=== PATIENT | female | born 1985 | race Two or more races ===

== ENCOUNTER 2020-12-28 20:44 | Emergency (ER) | payer OTHER, SELFPAY ==
[2020-12-28 20:46] VITALS: BP 106/56; PULSE 99; RESP 16; TEMP 36.3; O2SAT 97; BMI 31.1
--- NOTE | 2020-12-28 21:55 | ED_ITS ---
HPI - Ear Problem General Chief complaint: Ear Problems Stated complaint: Ear Pain Source: patient Mode of arrival: ambulatory Limitations: no limitations History of Present Illness HPI Narrative: Patient presents to the ED for right ear pain and yellow drainage from right ear. Patient has history of recurring infections. Patient also has small abscess on the right axillary. Patient denies any recent trauma to the head, nausea, vomiting, fever, chills, headache, dizziness, or swelling in front or behind here. Related Data Previous Rx's Medication Instructions Recorded amoxicillin-pot clavulanate 1 tab PO Q12H 10 Days #20 tab 12/28/20 [Augmentin] naproxen 500 mg PO BID PRN #20 tab 12/28/20 [id number] 4 drp OTIC (EAR) RIGHT QID 10 Days 12/28/20 [Cortisporin-TC] #10 ml Allergies Allergy/AdvReac Type Severity Reaction Status Date / Time No Known Allergies Allergy Verified 12/28/20 20:51 Review of Systems Review of Systems: Yes all other systems are reviewed and are negative Constitutional: Constitutional: Reports as per HPI and Reports no additional constitutional complaints Eyes: Eyes: Reports as per HPI and Reports no additional eye complaints ENT: Reports system reviewed and no additional complaints, except as documented, Reports as per HPI, Reports ear discharge and Reports otalgia Cardiovascular: Cardiovascular: Reports as per HPI and Reports no additional cardiovascular complaints Respiratory: Respiratory: Reports as per HPI and Reports no additional respiratory complaints Gastrointestinal: Gastrointestinal: Reports as per HPI and Reports no additional gastrointestinal complaints Genitourinary: Genitourinary: Reports no additional female genitourinary complaints and Reports as per HPI Musculoskeletal: Musculoskeletal: Reports no additional musculoskeletal complaints and Reports as per HPI Neurologic: Reports system reviewed and no additional complaints, except as documented and Reports as per HPI Psychiatric: Psychiatric: Reports no additional psychiatric complaints and Reports as per HPI [facility] Past Medical History Medical History (Updated 12/29/20 @ 00:01 by Leticia Bowers) Asthma Ear infection Social History Social History Advance Directives: No Advance Directives Information Provided: No Patient : No Physical Exam 2 Vital Signs: Vital Signs: Last Vital Signs Temp 97.4 F 12/28/20 20:46 Pulse 99 12/28/20 20:46 Resp 16 12/28/20 20:46 BP 106/56 L 12/28/20 20:46 Pulse Ox 97 12/28/20 20:46 Body Mass Index 31.1 Const: General: cooperative, healthy appearing, comfortable, no acute distress, well developed, alert, awake and Physically active Orientation/consciousness: patient oriented x3 HENMT: Other: Right ear positive for ear canal swelling with slight yellow discharge collection. Tympanic membrane erythema Head: Yes normal to inspection, Yes No palpable skull fracture present, Yes normocephalic, Yes atraumatic and No abrasion Eyes: General: appearance normal, both eyes and all related structures Neck: Neck: Yes normal visual inspection, Yes full ROM, Yes no lymphadenopathy, Yes no meningeal signs, Yes trachea midline, Yes supple and No tender Chest: Chest palpation & inspection: normal inspection of the chest and normal palpation of entire chest wall Resp: Effort & Inspection: normal respiratory effort and able to speak in complete sentences Auscultation: clear to auscultation bilaterally Cardio: Jugular venous distension: no JVD Heart sounds: S1 normal heart sound present and S2 normal heart sound present GI: Inspection: Yes normal to inspection and No abdominal wall ecchymosis Palpation (GI): Soft to palpation, not firm, nontender, no guarding and not rigid Skin: Other: Right axillary positive for abscess that is not fluctuant. Neuro: General: patient oriented x3, gait normal, no meningeal signs and CN's II-XI intact bilaterally Cranial nerves: Yes CN's II-XII intact bilaterally Extrem: General: Yes normal to inspection and Yes full ROM Psych: Appearance: grossly normal, well kempt and not disheveled Course Course Course Narrative: Abscess does not need to be drained. Reevaluation(s) Reevaluation #1: Diagnosis infection early abscess and otitis media/externa MDM - Ear MDM Narrative Medical decision making narrative: Otitis externa. Discharge Plan Discharge Clinical Impression: Otitis externa, Otitis media, Abscess Patient Disposition: Home, Self-Care Instructions: Ear Infection (ED), Abscess (ED) Additional Instructions: Return to the ED for worsening ear pain, redness/swelling in front of behind ear, worsening ear pain, worsening ear discharge, headache, neck pain, dizziness, worsening swelling of mass on the right arm., drainage, or any other concerning symptoms. Prescriptions: New amoxicillin-pot clavulanate [Augmentin] 875-125 mg tablet 1 tab PO Q12H 10 Days Qty: 20 RF: 0 naproxen 500 mg tablet 500 mg PO BID PRN (Reason: pain) Qty: 20 RF: 0 Cortisporin-TC 3.3-3-10-0.5 mg/mL drops,suspension 4 drp otic (ear) right QID 10 Days Qty: 10 RF: 0 Referrals: Live Blair [Physician] - 2 days (Chronic ear infections) Interventions: ED Discharge Assessment Last Done: 12/28/20 22:11 Discharge Date/Time: 12/28/20 22:19 Print Language: Syriac
== END 2020-12-28 22:19 | disposition home or self-care (01) ==
PROVIDERS: Emergency Provider Internal Medicine
DX: H60.91 Unspecified otitis externa, right ear (principal); H66.91 Otitis media, unspecified, right ear; H92.01 Otalgia, right ear; H60.01 Abscess of right external ear; Z79.899 Other long term (current) drug therapy
CPT/HCPCS: 99284

== ENCOUNTER 2021-02-15 18:09 | Emergency (ER) | payer OTHER, SELFPAY ==
[2021-02-15 18:18] VITALS: BP 116/40; PULSE 80; RESP 18; TEMP 36.1; O2SAT 97; BMI 29.2
--- NOTE | 2021-02-15 19:17 | PC.NURSE ---
WARM COMPRESS APPLIED UNDER LEFT UNDER ARM.
--- NOTE | 2021-02-15 19:30 | ED.GENADULT ---
HPI - General Adult General Chief complaint: Wound/Laceration Stated complaint: cyst, toe injury Time Seen by Provider: 02/15/21 19:18 Related Data Previous Rx's Medication Instructions Recorded amoxicillin 875 mg-potassium 1 tab PO Q12H 10 Days #20 tab 12/28/20 clavulanate 125 mg tablet (Augmentin) naproxen 500 mg tablet 500 mg PO BID PRN #20 tab 12/28/20 [id number]-dubirq-BE-thonzonm 3.3 4 drp OTIC (EAR) RIGHT QID 10 Days 12/28/20 mg-3 mg-10 mg-0.5 mg/mL ear #10 ml drops,susp (Cortisporin-TC) cephalexin 500 mg capsule 500 mg PO QID 5 Days #20 cap 02/15/21 Allergies Allergy/AdvReac Type Severity Reaction Status Date / Time No Known Allergies Allergy Verified 12/28/20 20:51 Review of Systems Review of Systems: Skin : No Skin Lesions, No rash, a right armpit swelling, right great toe pain Yes all other systems are reviewed and are negative Constitutional: Constitutional: Denies weight gain and Denies weight loss Cardiovascular: Cardiovascular: Reports no additional cardiovascular complaints Respiratory: Respiratory: Reports no additional respiratory complaints Gastrointestinal: Gastrointestinal: Denies abdominal pain, Denies belching, Denies melena, Denies bloating, Denies change in bowel habits, Denies dyspepsia, Denies heartburn, Denies nausea and Denies vomiting Neurologic: Reports system reviewed and no additional complaints, except as documented Psychiatric: Psychiatric: Reports no additional psychiatric complaints [facility] Past Medical History Medical History (Updated 02/16/21 @ 00:01 by Leticia Bowers) Asthma Ear infection Surgical History (Updated 02/15/21 @ 18:23 by Bessie Ann) History of ankle surgery Tubal ligation status Social History Social History Advance Directives: No Advance Directives Information Provided: No Patient : No (hx tubal ligation) Physical Exam Vital Signs: Vital Signs: Last Vital Signs Temp 96.9 F 02/15/21 18:18 Pulse 80 02/15/21 18:18 Resp 18 02/15/21 18:18 BP 116/40 L 02/15/21 18:18 Pulse Ox 97 02/15/21 18:18 Body Mass Index 29.2 Const: General: healthy appearing, no acute distress and well developed Nutritional Appearance: well nourished Orientation/consciousness: patient oriented x3 Neck: Neck: Yes normal visual inspection, Yes full ROM and Yes trachea midline Thyroid: Thyroid normal Resp: Auscultation: clear to auscultation bilaterally Cardio: Rate: regular rate Rhythm: regular rhythm GI: Inspection: Yes normal to inspection and No distended Palpation (GI): No hepatosplenomegaly present Auscultation: normal bowel sounds Skin: General skin exam: elasticity normal, turgor normal, dry skin and fluctuance (Right armpit) Nails: other (Right great toenail partial avulsion) Neuro: General: patient oriented x3 Course Course Course Narrative: 35-year-old female here today after hitting her right great toe, presents with partial avulsion of great toe toenail. She also reports that she has had cyst under her right armpit for the last few days. Not on any antibiotics. Area is fluctuated with white center. No fever or chills. Reevaluation(s) Reevaluation #1: Right great toenail removal used digital block. Patient tolerated. Right are paid abscess drained, packing placed patient was instructed to remove it in 4 days. However patient was instructed to return if she will increasing pain, swelling, redness, foul smell draining. She will be going on antibiotics for the next 5 days. Patient verbalizes understanding of instructions and is agreeable to plan of care. Procedures Procedure Narrative Procedure Narrative: Right great toe partial avulsion nail removal. Digital block with lidocaine 2%. Patient tolerated procedure well, whole nail removed, nail bed dressed with bacitracin and dry sterile dressing Abscess I/D Site: other (Right armpit) Side (if applicable): right Sedation/analgesia: other (Oxycodone, ) Local Anesthetic: lidocaine 2% Technique: incised with blade Amount of fluid expressed (mL): 3 Sent for culture/gram staining?: No Irrigation: Yes Packing used?: iodoform Nerve Block Nerve Block 1: Local Anesthetic: lidocaine 2% Amount of anesthesia used (mL): 10 Nerve Blocks: digital (Right great toe) Procedure Successful: Yes Patient Tolerated Procedure: well and no complications Discharge Plan Discharge Clinical Impression: Abscess, Nail avulsion, toe Patient Disposition: Home, Self-Care Instructions: Abscess Follow-up (ED), Nail Removal (ED) Additional Instructions: You were seen here today for abscess that was drained. Please keep the packing in for 4 days. You may remove it yourself. However if he will notice any foul-smelling order redness or have fever please return to emergency department or to your primary care provider. Left great toe toenail was removed. Please keep clean and dry. You may apply bacitracin. You will be sent home with antibiotics for 5 days. You may return to emergency department if he will develop any concerning symptoms. Prescriptions: New cephalexin 500 mg capsule 500 mg PO QID 5 Days Qty: 20 RF: 0 No Action amoxicillin-pot clavulanate [Augmentin] 875-125 mg tablet 1 tab PO Q12H 10 Days Qty: 20 RF: 0 naproxen 500 mg tablet 500 mg PO BID PRN (Reason: pain) Qty: 20 RF: 0 Cortisporin-TC 3.3-3-10-0.5 mg/mL drops,suspension 4 drp otic (ear) right QID 10 Days Qty: 10 RF: 0 Stand Alone Forms: Work/School Release Interventions: ED Discharge Assessment Last Done: 02/15/21 21:04 Discharge Date/Time: 02/15/21 21:07
[2021-02-15] MEDS: oxyCODONE HCl Immed Release 5 MG TABLET PO (19:42)
[2021-02-15] MEDS: Lidocaine HCl 2 % MPF 5 ML VIAL INFILTRATI ×4 (19:42)
[2021-02-15] MEDS: cephALEXin 500 MG CAPSULE PO (21:02)
--- NOTE | 2021-02-15 21:03 | PC.NURSE ---
PT LEFT TOE NAIOL REMOVED BY HAKAN SUN. PT RIGHT UNDER ARM ABSCESS CLEANED AND DRAINED PACKING APPLIED WITH DSD.
== END 2021-02-15 21:07 | disposition home or self-care (01) ==
PROVIDERS: Emergency Provider Emergency Medicine
DX: S91.201A Unspecified open wound of right great toe with damage to nail, initial encounter (principal); M79.674 Pain in right toe(s); X58.XXXA Exposure to other specified factors, initial encounter; Y93.9 Activity, unspecified; Y92.9 Unspecified place or not applicable; Y99.9 Unspecified external cause status; Z79.899 Other long term (current) drug therapy
CPT/HCPCS: 99284

== ENCOUNTER 2022-06-10 16:26 | Emergency (ER) | payer OTHER, SELFPAY | END 2022-06-10 17:41 | disposition left against medical advice (07) | PROVIDERS: Emergency Provider Emergency Medicine | DX: H92.03 Otalgia, bilateral (principal) ==

== ENCOUNTER 2022-10-05 11:18 | Emergency (ER) | payer OTHER, SELFPAY ==
[2022-10-05 12:03] VITALS: BP 111/68; PULSE 73; RESP 16; TEMP 36.2; O2SAT 99; BMI 29.6
--- NOTE | 2022-10-05 12:05 | ED_ITS ---
HPI - Dental/Oral General Chief complaint: Dental/Oral <Rhianna Thompson CNP - Last Filed: 10/05/22 12:10> Stated complaint: toothache <Rhianna Thompson CNP - Last Filed: 10/05/22 12:10> Time Seen by Provider: 10/05/22 12:43 <Rhianna Thmopson CNP - Last Filed: 10/05/22 12:10> Source: patient <MANJIT Alvarez - Last Filed: 10/05/22 18:11> Mode of arrival: ambulatory <MANJIT Alvarez Last Filed: 10/05/22 18:11> Limitations: no limitations <MANJIT Alvarez Last Filed: 10/05/22 18:11> History of Present Illness HPI Narrative: Patient is a 36 year old assigned female at with no reported medical history presenting to the emergency department today with dental pain. Patient states that over the last 3 days she has had left sided dental pain. Patient denies any dizziness, lightheadedness, abdominal pain, nausea, vomiting, fever, chills, blurry vision, double vision, loss of vision, chest pain, difficulty breathing, shortness of breath, back pain, night sweats, pain with urination, increased urinary frequency, increased urinary urgency, blood in her urine or stool, syncope or a near syncopal episode, recent trauma or falls, bowel incontinence, bladder incontinence, bowel retention, bladder retention, or any other complaints at this time. Patient states that she attempted to get into the dentist but they didn't have any availability. <MANJIT Alvarez - Last Filed: 10/05/22 18:11> MD Complaint: tooth pain <MANJIT Alvarez - Last Filed: 10/05/22 18:11> Location: Tooth # (13) <MANJIT Alvarez Last Filed: 10/05/22 18:11> Onset (ago): day(s) (3) <MANJIT Alvarez Last Filed: 10/05/22 18:11> Duration: constant <MANJIT Alvarez Last Filed: 10/05/22 18:11> Severity: moderate <MANJIT Alvarez Last Filed: 10/05/22 18:11> Severity scale (1-10): 5 <MANJIT Alvarez - Last Filed: 10/05/22 18:11> Relieving factors: nothing <MANJIT Alvarez - Last Filed: 10/05/22 18:11> Exacerbating factors: nothing <MANJIT Alvarez - Last Filed: 10/05/22 18:11> Context: history of dental caries and poor dental care <MANJIT Alvarez - Last Filed: 10/05/22 18:11> Associated symptoms: gum swelling <MANJIT Alvarez - Last Filed: 10/05/22 18:11> Treatment prior to arrival: none <MANJIT Alvarez - Last Filed: 10/05/22 18:11> Related Data Home medications: Previous Rx's Medication Instructions Recorded amoxicillin 875 mg-potassium 1 tab PO Q12H ear infections 10 12/28/20 clavulanate 125 mg tablet days #20 tabs (Augmentin) naproxen 500 mg tablet 500 mg PO BID PRN pain #20 tabs 12/28/20 [id number] 3.3 4 drp otic (ear) right QID otitis 12/28/20 mg-3 mg-10 mg-0.5 mg/mL ear externa 10 days #10 mL drops,susp (Cortisporin-TC) cephalexin 500 mg capsule 500 mg PO QID 5 days #20 caps 02/15/21 chlorhexidine gluconate 0.12 % 15 ml buccal BID #118 mL 10/05/22 mouthwash (Peridex) oxycodone 5 mg tablet 5 mg PO Q4-6H PRN pain #4 tabs 10/05/22 penicillin V potassium 500 mg 500 mg PO QID 7 days #28 tabs 10/05/22 tablet <Rhianna Thompson CNP - Last Filed: 10/05/22 12:10> Allergies/adverse reactions: Allergies Allergy/AdvReac Type Severity Reaction Status Date / Time No Known Allergies Allergy Mild NONE Verified 10/05/22 17:02 <Rhianna Thompson CNP - Last Filed: 10/05/22 12:10> Review of Systems Constitutional: Constitutional: Reports no additional constitutional complaints, Denies chills, Denies fever(s) and Denies night sweats <MANJIT Alvarez - Last Filed: 10/05/22 18:11> Eyes: Eyes: Reports no additional eye complaints, Denies blurry vision, Denies change in vision, Denies diplopia, Denies eye discharge, Denies loss of vision and Denies eye pain <MANJIT Alvarez - Last Filed: 10/05/22 18:11> ENT: Denies dizziness <MANJIT Alvarez - Last Filed: 10/05/22 18:11> Comments: left sided dental pain <MANJIT Alvarez - Last Filed: 10/05/22 18:11> Cardiovascular: Cardiovascular: Reports no additional cardiovascular complaints, Denies chest pain, Denies lightheadedness, Denies Loss of Consciousness and Denies dyspnea <MANJIT Alvarez - Last Filed: 10/05/22 18:11> Respiratory: Respiratory: Reports no additional respiratory complaints and Denies dyspnea <MANJIT Alvarez - Last Filed: 10/05/22 18:11> Gastrointestinal: Gastrointestinal: Reports no additional gastrointestinal complaints, Denies abdominal pain, Denies melena, Denies hematochezia, Denies change in bowel habits and Denies change in stool character <MANJIT Alvarez - Last Filed: 10/05/22 18:11> Genitourinary: Genitourinary: Denies hematuria, Denies urinary frequency, Denies dysuria, Denies urinary incontinence, Denies urinary hesitancy and Denies urinary urgency <MANJIT Alvarez - Last Filed: 10/05/22 18:11> Musculoskeletal: Musculoskeletal: Reports no additional musculoskeletal complaints, Denies numbness and Denies tingling <MANJIT Alvarez - Last Filed: 10/05/22 18:11> Neurologic: Denies dizziness, Denies loss of vision, Denies numbness and Denies tingling <MANJIT Alvarez - Last Filed: 10/05/22 18:11> Psychiatric: Psychiatric: Reports no additional psychiatric complaints <MANJIT Alvarez - Last Filed: 10/05/22 18:11> Endocrine: Endocrine: Reports no additional endocrine complaints <MANJIT Alvarez - Last Filed: 10/05/22 18:11> Hematologic/Lymphatic: Hematologic/Lymphatic: Reports no additional hematologic/lymphatic complaints <MANJIT Alvarez - Last Filed: 10/05/22 18:11> Allergic/Immunologic: Allergic/Immunologic: Reports no additional allergic/immunologic complaints <MANJIT Alvarez - Last Filed: 10/05/22 18:11> PMFSH Past Medical History Attestation statement: The following information was validated with the patient. <MANJIT Alvarez - Last Filed: 10/05/22 18:11> Source: old records reviewed and nursing notes reviewed <MANJIT Alvarez - Last Filed: 10/05/22 18:11> Medical History: Medical History Asthma Ear infection <Rhianna Thompson CNP - Last Filed: 10/05/22 12:10> Surgical History: Surgical History History of ankle surgery Tubal ligation status <Rhianna Thompson CNP - Last Filed: 10/05/22 12:10> Social History Social History: Social History Use of substances other than those prescribed or required for medical reasons: No Any prior treatment program specific to substance use: No Advance Directives: No Advance Directives Information Provided: Yes Patient : No <Rhianna Thompson CNP - Last Filed: 10/05/22 12:10> Physical Exam Vital Signs: Vital Signs: Last Vital Signs Temp 97.2 F 10/05/22 12:03 Pulse 73 10/05/22 12:03 Resp 16 10/05/22 12:03 BP 111/68 10/05/22 12:03 Pulse Ox 99 10/05/22 12:03 O2 Del Method 10/05/22 12:03 BMI result Body Mass Index 29.6 <Rhianna Thompson CNP - Last Filed: 10/05/22 12:10> Vital Signs: Last Vital Signs Temp 97.2 F 10/05/22 12:03 Pulse 73 10/05/22 12:03 Resp 16 10/05/22 12:03 BP 111/68 10/05/22 12:03 Pulse Ox 99 10/05/22 12:03 O2 Del Method 10/05/22 12:03 BMI result Body Mass Index 29.6 <MANJIT Alvarez - Last Filed: 10/05/22 18:11> Const: General: cooperative, no acute distress, alert and awake <MANJIT Alvarez - Last Filed: 10/05/22 18:11> Nutritional Appearance: well nourished <MANJIT Alvarez - Last Filed: 10/05/22 18:11> Orientation/consciousness: patient oriented x3 <MANJIT Alvarez - Last Filed: 10/05/22 18:11> Limitations: no limitations <MANJIT Alvarez - Last Filed: 10/05/22 18:11> HEENT: Head: Yes normal to inspection and Yes atraumatic <MANJIT Alvarez - Last Filed: 10/05/22 18:11> Ears: hearing grossly normal bilaterally and external ears normal <MANJIT Alvarez - Last Filed: 10/05/22 18:11> General nose exam: Normal external nose present, no nasal discharge noted and no epistaxis <MANJIT Alvarez - Last Filed: 10/05/22 18:11> Face and sinus: Yes normal facial exam, No abrasion and No laceration <MANJIT Chowdhury - Last Filed: 10/05/22 18:11> Mouth: Normal oral and palatal mucosa present, no drooling and no muffled voice <MANJIT Alvarez - Last Filed: 10/05/22 18:11> Teeth and gingiva: poor dentition and other (all teeth except tooth #13 are gone) <MANJIT Alvarez - Last Filed: 10/05/22 18:11> Teeth image: 1. swelling around the tooth and obvious dental caries present <Rhianna Thompson CNP - Last Filed: 10/05/22 12:10> Teeth image: 1. swelling around the tooth and obvious dental caries present <MANJIT Alvarez - Last Filed: 10/05/22 18:11> Eyes: General: appearance normal, both eyes and all related structures <MANJIT Alvarez - Last Filed: 10/05/22 18:11> Periorbital: periorbital findings normal <Celeste Andersen PA - Last Filed: 10/05/22 18:11> Eyelids: Yes eyelids normal <Celeste Andersen PA - Last Filed: 10/05/22 18:11> Conjunctivae: conjunctivae normal <Celeste Andersen PA - Last Filed: 10/25 18:11> Pupils: Equal, round and reactive pupils present <Celeste Andersen PA - Last Filed: 10/05/22 18:11> EOM: EOMs intact bilaterally <Celeste Andersen PA - Last Filed: 10/05/22 18:11> Neck: Neck: Yes normal visual inspection, Yes full ROM and Yes no lymphadenopathy <Celeste Sniderclarice PA - Last Filed: 10/05/22 18:11> Chest: Chest palpation & inspection: normal inspection of the chest <Celeste Sniderclarice PA - Last Filed: 10/05/22 18:11> Resp: Effort & Inspection: normal respiratory effort and able to speak in complete sentences <Celeste Sniderclarice PA - Last Filed: 10/05/22 18:11> Auscultation: clear to auscultation bilaterally <Celeste Sniderclarice PA - Last Filed: 10/05/22 18:11> Cardio: Rate: regular rate <Celeste Sniderclarice PA - Last Filed: 10/05/22 18:11> Rhythm: regular rhythm <Celeste Andersen PA - Last Filed: 10/05/22 18:11> GI: Inspection: Yes normal to inspection <Celeste Sniderclarice PA - Last Filed: 10/05/22 18:11> Palpation (GI): Soft to palpation, not firm, nontender, no guarding and not rigid <Celeste Sniderclarice PA - Last Filed: 10/05/22 18:11> Neuro: General: patient oriented x3 and moves all extremities <Celeste Sniderclarice PA - Last Filed: 10/05/22 18:11> Cranial nerves: Yes Equal, round and reactive pupils present <Celeste Sniderclarice PA - Last Filed: 10/05/22 18:11> Cognition (Neuro): normal cognition <Celestedean Sniderclarice PA - Last Filed: 10/05/22 18:11> Motor exam (neuro): 5/5 motor strength present throughout <MANJIT Alvarez - Last Filed: 10/05/22 18:11> Sensory Exam: Normal double simultaneous stimulation for sensation <MANJIT Alvarez - Last Filed: 10/05/22 18:11> Coordination: gpzquy-qv-lgle test normal <MANJIT Alvarez - Last Filed: 10/05/22 18:11> Extrem: General: Yes normal to inspection, Yes full ROM and Yes capillary refill normal <MANJIT Alvarez - Last Filed: 10/05/22 18:11> Psych: Appearance: grossly normal <MANJIT Alvarez - Last Filed: 0 10/05/22 18:11> Mental Status: mental status grossly normal <MANJIT Alvarez - Last Filed: 10/05/22 18:11> Affect: normal affect <MANJIT Alvarez - Last Filed: 10/05/22 18:11> Attitude: cooperative <MANJIT Alvarez - Last Filed: 10/05/22 18:11> Thought process: Normal thought process present <MANJIT Alvarez - Last Filed: 10/05/22 18:11> Thought content: Normal thought content present <MANJIT Alvarez - Last Filed: 10/05/22 18:11> Insight: Good insight present (Psych) <MANJIT Alvarez - Last Filed: 10/05/22 18:11> Course Course Course Narrative: This is an RME: Additional HPI, ROS, PE not included below will be deferred to primary provider. Patient is a 36-year-old female who presents to the emergency department with complaint of left upper dental pain, with swelling of the gums, foul taste in mouth, pain radiating to L ear x 3 days, was unable to get appointment with dental provider. Reports pain is unbearable. <Rhianna Thompson CNP - Last Filed: 10/05/22 12:10> Medications Administered Discontinued Medications Generic Name Dose Route Start Last Admin Trade Name Freq PRN Reason Stop Dose Admin Ibuprofen 600 mg 10/05/22 12:07 10/05/22 12:11 Ibuprofen 600 Mg Tablet PO 10/05/22 12:08 600 mg ONCE ONE Administration <Rhianna Thompson CNP - Last Filed: 10/05/22 12:10> Medications Administered Discontinued Medications Generic Name Dose Route Start Last Admin Trade Name Brianna LEONARD Reason Stop Dose Admin Ibuprofen 600 mg 10/05/22 12:07 10/05/22 12:11 Ibuprofen 600 Mg Tablet PO 10/05/22 12:08 600 mg ONCE ONE Administration <MANJIT Alvarez - Last Filed: 10/05/22 18:11> Medical Decision Making Medical Decision Making MDM Narrative: Patient is a 36 year old assigned female at with no reported medical history presenting to the emergency department today with left sided dental pain. Patient's physical exam showed poor dentition throughout her mouth with all teeth except #13 of the upper left row, removed. Base of tooth 13 showed swelling and an obvious dental ena. I explained my physical exam findings to the patient. I answered all questions asked by the patient. I stressed the importance of the patient taking her medication as prescribed. I stressed the importance of the patient following up with her primary care provider and a dentist. I stressed the importance of the patient returning to the emergency department immediately if her symptoms were to worsen or if she were to develop any dizziness, shortness of breath, difficulty breathing, chest pain, blurry vision, loss of vision, nausea, vomiting, abdominal pain, fever, chills, back pain, or any other complaints. Patient verbalized agreement and understanding with this treatment plan and discharge. <MANJIT Alvarez - Last Filed: 10/05/22 18:11> Differential Diagnosis Differential Diagnoses: The differential diagnosis associated with the presentation includes <MANJIT Alvarez - Last Filed: 10/05/22 18:11> dental abscess, dental pain <MANJIT Alvarez - Last Filed: 10/05/22 18:11> Discharge Plan Discharge Clinical Impression: Dental abscess <Rhianna Thompson CNP - Last Filed: 10/05/22 12:10> Patient Disposition: Home, Self-Care <Rhianna Thompson CNP - Last Filed: 10/05/22 12:10> Instructions: Dental Abscess (ED) <Rhianna Thompson CNP - Last Filed: 10/05/22 12:10> Additional Instructions: Follow up with your primary care provider and a dentist. Return to the emergency department immediately if your symptoms worsen or if you develop any dizziness, shortness of breath, difficulty breathing, chest pain, blurry vision, loss of vision, nausea, vomiting, abdominal pain, fever, chills, back pain, or any other complaints. Call or visit any of the clinics below to establish with a dentist: [facility] [address] [place] [address] [facility] [address] [facility], [address] [address] [place] [address] [facility] Dental [facility] 1 [facility] [address] [place] [address] [facility] [address] [place] [address] [address] [place] [address] <Rhianna Thompson CNP - Last Filed: 10/05/22 12:10> Prescriptions: New penicillin V potassium 500 mg tablet 500 mg PO QID 7 Days Qty: 28 0RF oxycodone 5 mg tablet 5 mg PO Q4-6H PRN (Reason: pain) Qty: 4 0RF Rx Instructions: Partial Fill upon patient request. chlorhexidine gluconate [Peridex] 0.12 % mouthwash 15 ml buccal BID Qty: 118 0RF No Action amoxicillin-pot clavulanate [Augmentin] 875-125 mg tablet 1 tab PO Q12H 10 Days Qty: 20 0RF naproxen 500 mg tablet 500 mg PO BID PRN (Reason: pain) Qty: 20 0RF Cortisporin-TC 3.3-3-10-0.5 mg/mL drops,suspension 4 drp otic (ear) right QID 10 Days Qty: 10 0RF cephalexin 500 mg capsule 500 mg PO QID 5 Days Qty: 20 0RF <Rhianna Thompson CNP - Last Filed: 10/05/22 12:10> Referrals: [facility] Family Medicine [Provider Group] (Call to establish and follow up with a primary care provider. If you already have a primary care provider, please follow up with them.) [facility] [Provider Group] (Call to establish and follow up with a primary care provider. If you already have a primary care provider, please follow up with them.) [facility] [Provider Group] (Call to establish and follow up with a primary care provider. If you already have a primary care provider, please follow up with them.) <Rhianna Thompson CNP - Last Filed: 10/05/22 12:10> Stand Alone Forms: Work/School Release <Rhianna Thompson CNP - Last Filed: 10/05/22 12:10> Interventions: ED Discharge Assessment Last Done: 10/05/22 13:03 <Rhianna Thompson CNP - Last Filed: 10/05/22 12:10> Discharge Date/Time: 10/05/22 13:03 <Rhianna Thompson CNP - Last Filed: 10/05/22 12:10> Print Language: Slovenian <Rhianna Thompson CNP - Last Filed: 10/05/22 12:10>
[2022-10-05] MEDS: Ibuprofen 600 MG TABLET PO (12:11)
== END 2022-10-05 13:03 | disposition home or self-care (01) ==
PROVIDERS: Emergency Provider Emergency Medicine Emergency Medical Services
DX: K04.7 Periapical abscess without sinus (principal); Z79.899 Other long term (current) drug therapy
CPT/HCPCS: 99283; 99284

== ENCOUNTER 2022-11-18 10:35 | Emergency (ER) | payer MEDICAID, SELFPAY ==
[2022-11-18 10:46] VITALS: BP 108/53; PULSE 82; RESP 18; TEMP 36.6; O2SAT 96; BMI 31.1
--- NOTE | 2022-11-18 11:13 | ED.DENTAL ---
HPI - Dental/Oral General Chief complaint: Dental/Oral Stated complaint: R side tooth pain/ 11/16 tooth extraction Time Seen by Provider: 11/18/22 11:10 Source: patient Mode of arrival: ambulatory History of Present Illness HPI Narrative: 37-year-old female with a past medical history of asthma, presenting to the ED complaining of a left upper dental pain s/p tooth extraction on Saturday. Reports increasing pain to area, and feels like tooth is still intact. Currently taking amoxicillin and Tylenol without relief. Denies fever/chills, ear pain, sore throat, difficulty/inability to swallow, drainage from area MD Complaint: tooth pain Related Data Previous Rx's Medication Instructions Recorded amoxicillin 875 mg-potassium 1 tab PO Q12H ear infections 10 12/28/20 clavulanate 125 mg tablet days #20 tabs (Augmentin) naproxen 500 mg tablet 500 mg PO BID PRN pain #20 tabs 12/28/20 [id number]-[id number] 3.3 4 drp otic (ear) right QID otitis 12/28/20 mg-3 mg-10 mg-0.5 mg/mL ear externa 10 days #10 mL drops,susp (Cortisporin-TC) cephalexin 500 mg capsule 500 mg PO QID 5 days #20 caps 02/15/21 chlorhexidine gluconate 0.12 % 15 ml buccal BID #118 mL 10/05/22 mouthwash (Peridex) oxycodone 5 mg tablet 5 mg PO Q4-6H PRN pain #4 tabs 10/05/22 penicillin V potassium 500 mg 500 mg PO QID 7 days #28 tabs 10/05/22 tablet hydrocodone 5 mg-acetaminophen 325 1 tab PO Q8H PRN pain, severe 3 11/18/22 mg tablet days #5 tabs ibuprofen 800 mg tablet 800 mg PO Q8H PRN pain #14 tabs 11/18/22 Allergies Allergy/AdvReac Type Severity Reaction Status Date / Time No Known Allergies Allergy Mild NONE Verified 11/18/22 10:49 Review of Systems Review of Systems: Constitutional: No Fever, No Chills ENT/Mouth: +dental pain, No Ear Pain, No Nasal Congestion, No Sinus Pain, No Hoarseness, No sore throat, No Rhinorrhea, No Swallowing Difficulty Cardiovascular: No Chest Pain, No SOB Respiratory: No Cough, No Sputum, No Wheezing Gastrointestinal: No Nausea, No Vomiting, No Diarrhea, No Constipation, No Abdominal pain Musculoskeletal: No joint pain, No Myalgias, No Joint Swelling Skin: No Skin Lesions, No rash Neuro: No Weakness, No Numbness, No Paresthesias Yes all other systems are reviewed and are negative Constitutional: Constitutional: Reports as per [facility] Past Medical History Attestation statement: The following information was validated with the patient. Medical History Asthma Ear infection Surgical History History of ankle surgery Tubal ligation status Social History Social History Advance Directives: No Advance Directives Information Provided: No Physical Exam Vital Signs: Vital Signs: Last Vital Signs Temp 97.9 F 11/18/22 10:46 Pulse 82 11/18/22 10:46 Resp 18 11/18/22 10:46 BP 108/53 L 11/18/22 10:46 Pulse Ox 96 11/18/22 10:46 O2 Del Method Room Air 11/18/22 10:46 BMI result Body Mass Index 31.1 Const: General: cooperative, healthy appearing and no acute distress Orientation/consciousness: patient oriented x3 Limitations: no limitations HEENT: Other: Left upper 2nd molar extracted, mild surrounding gingival inflammation, no erythema, fluctuance or induration, no active drainage. + tender to palpation Head: Yes normal to inspection and Yes atraumatic Ears: hearing grossly normal bilaterally, TM's normal bilaterally and mastoids normal General nose exam: Normal external nose present Face and sinus: Yes normal facial exam Teeth and gingiva: poor dentition Throat: Yes posterior oropharynx normal and Yes uvula midline Eyes: General: appearance normal, both eyes and all related structures EOM: EOMs intact bilaterally Neck: Neck: Yes normal visual inspection, Yes no lymphadenopathy, Yes no meningeal signs and No anterior neck swelling Resp: Effort & Inspection: normal respiratory effort, no respiratory distress and no stridor Cardio: Rate: regular rate Skin: Rashes: no rashes Wounds: no wounds Neuro: General: patient oriented x3, tone normal and no meningeal signs Gait exam (Neuro): Normal gait present Extrem: General: Yes normal to inspection Medical Decision Making Medical Decision Making MDM Narrative: 37-year-old female with a past medical history of asthma, presenting to the ED complaining of a left upper dental pain s/p tooth extraction on Saturday. On exam vital signs stable, NAD, nontoxic, physical exam as above. Extracted tooth site noted, no appreciable residual tooth at site. + gingival inflammation, no erythema/fractions or induration. Concern for residual dental pain after extraction vs dry socket. No evidence of necrosis or abscess Plan: Dry socket paste, pain management, close dentistry follow-up >> no dry socket paste in dental box, patient given topical benzocaine Please refer to course for remaining clinical decision making, interpretation of labs/imaging results, and discussions with consultants and/or family members. Differential Diagnosis Differential Diagnoses: The differential diagnosis associated with the presentation includes As above Admission/Observation Consideration of admission/observation: Escalation of care including admission/observation considered Lab Data [facility] Lab Attestation statement: I reviewed the patient's lab results. Radiology Impression Discussion of test interpretation with radiology: I have reviewed the radiologist's reading. External Record Review External record reviewed: Inpatient record, Office record, Outpatient record, Prior outpatient labs, Prior outpatient radiology, Primary care record and Outside ED record Discharge Plan Discharge Clinical Impression: Toothache Patient Disposition: Home, Self-Care Instructions: Toothache (ED) Additional Instructions: Continue taking previously prescribed antibiotics In addition ibuprofen will help with pain and inflammation [place] is in opiate pain medication, take only when pain is severe for the next [address], drink alcohol, or operate machinery while taking Call your dentist for close follow-up on Saturday when the office opens If symptoms persist or worsen return to the ED Prescriptions: New ibuprofen 800 mg tablet 800 mg PO Q8H PRN (Reason: pain) Qty: 14 0RF hydrocodone-acetaminophen 5-325 mg tablet 1 tab PO Q8H PRN (Reason: pain, severe) 3 Days Qty: 5 0RF Rx Instructions: Partial Fill upon patient request. No Action amoxicillin-pot clavulanate [Augmentin] 875-125 mg tablet 1 tab PO Q12H 10 Days Qty: 20 0RF naproxen 500 mg tablet 500 mg PO BID PRN (Reason: pain) Qty: 20 0RF Cortisporin-TC 3.3-3-10-0.5 mg/mL drops,suspension 4 drp otic (ear) right QID 10 Days Qty: 10 0RF cephalexin 500 mg capsule 500 mg PO QID 5 Days Qty: 20 0RF penicillin V potassium 500 mg tablet 500 mg PO QID 7 Days Qty: 28 0RF oxycodone 5 mg tablet 5 mg PO Q4-6H PRN (Reason: pain) Qty: 4 0RF Rx Instructions: Partial Fill upon patient request. chlorhexidine gluconate [Peridex] 0.12 % mouthwash 15 ml buccal BID Qty: 118 0RF Referrals: Physician,Unknown J [Primary Care Provider] -
== END 2022-11-18 11:47 | disposition home or self-care (01) ==
PROVIDERS: Emergency Provider Emergency Medicine
DX: K08.89 Other specified disorders of teeth and supporting structures (principal)
CPT/HCPCS: 99282

== ENCOUNTER 2023-04-19 09:56 | Emergency (ER) | payer MEDICAID, SELFPAY ==
--- NOTE | ~2023-04-19 | XR_ITS ---
EXAMINATION: XR KNEE, LEFT CLINICAL INFORMATION: Left knee pain following injury. COMPARISON: None available. TECHNIQUE: Four views of the left knee. FINDINGS: No acute fracture or dislocation. No joint space narrowing or marginal osteophytes. No osseous erosion. No abnormal soft tissue calcification. Trace joint effusion. XR/XR knee LT 4V IMPRESSION: Trace joint effusion.
[2023-04-19 10:08] VITALS: BP 113/52; PULSE 83; RESP 17; TEMP 36.4; O2SAT 98; BMI 30.6
--- NOTE | 2023-04-19 12:25 | ED_ITS ---
HPI - General Adult General Chief complaint: Extremity Injury, Lower Stated complaint: sprained knee cap Time Seen by Provider: 04/19/23 11:42 Source: patient Mode of arrival: ambulatory Limitations: no limitations History of Present Illness HPI narrative: 37-year-old female presents to the knee pain since early this morning. Patient states last night she tripped and when she fell she fell strainght down unto the floor with her left leg stretched out in front of her and felt pain immeidatley in anterior and posterior knee. Patient denies rest of body including head hitting the floor. patient states posterior knee pain when straightened out leg or extending knee. Related Data Previous Rx's Medication Instructions Recorded amoxicillin 875 mg-potassium 1 tab PO Q12H ear infections 10 12/28/20 clavulanate 125 mg tablet days #20 tabs (Augmentin) naproxen 500 mg tablet 500 mg PO BID PRN pain #20 tabs 12/28/20 [id number] 3.3 4 drp otic (ear) right QID otitis 12/28/20 mg-3 mg-10 mg-0.5 mg/mL ear externa 10 days #10 mL drops,susp (Cortisporin-TC) cephalexin 500 mg capsule 500 mg PO QID 5 days #20 caps 02/15/21 chlorhexidine gluconate 0.12 % 15 ml buccal BID #118 mL 10/05/22 mouthwash (Peridex) oxycodone 5 mg tablet 5 mg PO Q4-6H PRN pain #4 tabs 10/05/22 penicillin V potassium 500 mg 500 mg PO QID 7 days #28 tabs 10/05/22 tablet hydrocodone 5 mg-acetaminophen 325 1 tab PO Q8H PRN pain, severe 3 11/18/22 mg tablet days #5 tabs ibuprofen 800 mg tablet 800 mg PO Q8H PRN pain #14 tabs 11/18/22 naproxen 500 mg tablet 500 mg PO BID PRN pain 7 days #14 04/19/23 tabs oxycodone 5 mg capsule 5 mg PO TID PRN pain 3 days #9 caps 04/19/23 prednisone 20 mg tablet 40 mg (2 x 20 mg) PO DAILY 5 days 04/19/23 #10 tabs Allergies Allergy/AdvReac Type Severity Reaction Status Date / Time No Known Allergies Allergy Mild NONE Verified 11/18/22 10:49 Review of Systems 2 Review of Systems: LEft knee pain Yes all other systems are reviewed and are negative [facility] Past Medical History Medical History Asthma Ear infection Surgical History History of ankle surgery Tubal ligation status Social History Social History Advance Directives: No Physical Exam ED Vital Signs: Vital Signs - 24 hr 04/19/23 10:08 Temperature 97.6 F Pulse Rate 83 Respiratory Rate 17 Blood Pressure 113/52 L Pulse Oximetry 98 Oxygen Delivery Method Room Air BMI result Body Mass Index 30.6 Const Orientation/consciousness: oriented to person, oriented to place, oriented to time and patient oriented x3 HENMT Head: Yes normal to inspection, Yes No palpable skull fracture present, Yes normocephalic and Yes atraumatic Eyes General: appearance normal, both eyes and all related structures Neck Neck: Yes normal visual inspection, Yes full ROM, Yes no lymphadenopathy, Yes no meningeal signs, Yes trachea midline, Yes supple, No anterior neck swelling and No tender Chest Chest palpation & inspection: normal inspection of the chest and normal palpation of entire chest wall Resp Effort & Inspection: normal respiratory effort and able to speak in complete sentences Auscultation: clear to auscultation bilaterally Cardio Jugular venous distension: no JVD Heart sounds: S1 normal heart sound present and S2 normal heart sound present GI Inspection: Yes normal to inspection Palpation (GI): Soft to palpation, not firm, nontender, no guarding and not rigid General: No CVA tenderness and Yes no CVA tenderness Back/Spine/Pelvis Back: no CVA tenderness, No CVA tenderness and No back tenderness Skin General skin exam: no rashes or lesions noted, elasticity normal and turgor normal Neuro General: oriented to person, oriented to place, oriented to time, patient oriented x3, gait normal, tone normal, moves all extremities, Normal light touch and pain sensation, no meningeal signs, no focal motor deficits, CN's II-XI intact bilaterally and normal sensation to monofilament Extrem General: Yes normal to inspection Knee images: 2 1. tenderness on palpation. Negative for crepitus, ecchymosis, or deformity. When extending leg / straighten out knee patient is significant pain. Popliteal pulses intact. Neuro exam intact. Vascular exam of lower extremity intact. Motor exam limited due to pain. rest of extremity normal. 2. Tenderness on palpation. Negative for crepitus, ecchymosis, or deformity. Vascular neuro exam intact. Negative for erythema, ecchymosis, hotness, or coolness. Motor exam limited due to pain. Psych Appearance: grossly normal, well kempt and not disheveled Medications Administered Discontinued Medications Generic Name Dose Route Start Last Admin Trade Name Servandoq PRN Reason Stop Dose Admin Acetaminophen 650 mg 04/19/23 12:23 04/19/23 12:45 Acetaminophen 325 Mg Tablet PO 04/19/23 12:24 650 mg ONCE ONE Administration Oxycodone HCl 5 mg 04/19/23 12:23 04/19/23 12:45 Oxycodone Hcl Immed Release 5 Mg Tablet PO 04/19/23 12:24 5 mg ONCE ONE Administration Prednisone 40 mg 04/19/23 12:23 04/19/23 12:45 Prednisone 20 Mg Tablet PO 04/19/23 12:24 40 mg ONCE ONE Administration Medical Decision Making Medical Decision Making MDM Narrative: 37-year-old female presents to the ED for left knee pain after falling straight down onto left leg and knee strain out. Patient denies any head trauma or trauma to the rest of the body. Patient states when extending or strain on left leg she has pain in posterior knee area. X-ray of knee negative for fractures or dislocation but does show trace joint effusion. patient was informed this may indicate some ligament or meniscus injury to left knee. Patient was informed also due to her having left posterior knee lower thigh tenderness she might be at risk for hamstring injury. Patient informed to follow up with PCP to assess for MRI. Patient placed in knee Harmeet wrap and crutches. Differential Diagnosis Differential Diagnoses: The differential diagnosis associated with the presentation includes ( Knee dislocation, knee fracture, patella tendon rupture, hamstring injury, ) Admission/Observation Consideration of admission/observation: Escalation of care including admission/observation considered Independent Interpretation I performed an independent interpretation of an: Plain X-Ray Radiology Impression Discussion of test interpretation with radiology: I have reviewed the radiologist's reading. Independent Historian Clinical information obtained from an independent historian. History obtained from or confirmed by: Spouse External Record Review External record reviewed: Other (Prior ED visit) Prescription Management I considered prescription management with: Pain Medication Discharge Plan Discharge Clinical Impression: Knee sprain, Hamstring muscle strain Patient Disposition: Home, Self-Care Instructions: Knee Sprain (ED), Crutch Instructions (ED), Hamstring Injury (ED), How to Use an Elastic Bandage (ED), R.I.C.E. Treatment (ED), Hamstring Exercises (ED) Additional Instructions: the x-ray came back negative for any fractures but does shows trace joint infusion knee knee. this may indicate meniscus or ligament injury in your knee and also with posterior knee pain might indicate hamstring injury. Most likely you need MRI. Please follow-up with your primary care provider. Return to the ED immediately for any swelling, bluish black discoloration, worsening pain, inability to move left lower extremity, fever, chills, chest pain, shortness of breath, or any other concerning symptoms. Prescriptions: New naproxen 500 mg tablet 500 mg PO BID PRN (Reason: pain) 7 Days Qty: 14 0RF prednisone 20 mg tablet 40 mg PO DAILY 5 Days Qty: 10 0RF oxycodone 5 mg capsule 5 mg PO TID PRN (Reason: pain) 3 Days Qty: 9 0RF Rx Instructions: Partial Fill upon patient request. No Action amoxicillin-pot clavulanate [Augmentin] 875-125 mg tablet 1 tab PO Q12H 10 Days Qty: 20 0RF naproxen 500 mg tablet 500 mg PO BID PRN (Reason: pain) Qty: 20 0RF Cortisporin-TC 3.3-3-10-0.5 mg/mL drops,suspension 4 drp otic (ear) right QID 10 Days Qty: 10 0RF cephalexin 500 mg capsule 500 mg PO QID 5 Days Qty: 20 0RF penicillin V potassium 500 mg tablet 500 mg PO QID 7 Days Qty: 28 0RF oxycodone 5 mg tablet 5 mg PO Q4-6H PRN (Reason: pain) Qty: 4 0RF Rx Instructions: Partial Fill upon patient request. chlorhexidine gluconate [Peridex] 0.12 % mouthwash 15 ml buccal BID Qty: 118 0RF ibuprofen 800 mg tablet 800 mg PO Q8H PRN (Reason: pain) Qty: 14 0RF hydrocodone-acetaminophen 5-325 mg tablet 1 tab PO Q8H PRN (Reason: pain, severe) 3 Days Qty: 5 0RF Rx Instructions: Partial Fill upon patient request. Referrals: [facility] [place] Orthopedic Surgeons [Provider Group] ( Left knee pain left anterior and left posterior knee/ lower thigh pain) Interventions: ED Discharge Assessment Last Done: 04/19/23 12:52 Discharge Date/Time: 04/19/23 13:03 Print Language: Citizen Of [place]
[2023-04-19] MEDS: predniSONE 20 MG TABLET 40 MG PO (12:45)
[2023-04-19] MEDS: oxyCODONE HCl Immed Release 5 MG TABLET PO (12:45)
[2023-04-19] MEDS: Acetaminophen 325 MG TABLET 650 MG PO (12:45)
== END 2023-04-19 13:03 | disposition home or self-care (01) ==
PROVIDERS: Emergency Provider Emergency Medicine Emergency Medical Services
DX: S83.92XA Sprain of unspecified site of left knee, initial encounter (principal); S76.312A Strain of muscle, fascia and tendon of the posterior muscle group at thigh level, left thigh, initial encounter; W01.0XXA Fall on same level from slipping, tripping and stumbling without subsequent striking against object, initial encounter; Y93.9 Activity, unspecified; Y92.9 Unspecified place or not applicable; Y99.9 Unspecified external cause status
CPT/HCPCS: 73564; 99283

== ENCOUNTER 2023-08-06 08:27 | Emergency (ER) | payer MEDICAID, SELFPAY ==
--- NOTE | ~2023-08-06 | XR_ITS ---
EXAMINATION: XR KNEE, LEFT CLINICAL INFORMATION: Left knee pain. COMPARISON: 04/19/2023 TECHNIQUE: Four views of the left knee. FINDINGS: No fracture or joint effusion. Alignment is anatomic. Joint spaces are maintained. No abnormal soft tissue calcification. XR/XR knee LT 4V IMPRESSION: Normal left knee.
[2023-08-06 08:59] VITALS: BP 100/53; PULSE 72; RESP 18; TEMP 36.6; O2SAT 97; BMI 30.2
[2023-08-06 11:12] VITALS: BP 100/51; PULSE 76; RESP 16; O2SAT 98
--- NOTE | 2023-08-06 11:13 | ED_ITS ---
HPI - Extremity Injury (Lower) General Chief Complaint: Extremity Injury, Lower Stated Complaint: L foot/leg pain and numbness Time Seen by Provider: 08/06/23 11:11 Source: patient Mode of arrival: ambulatory Limitations: no limitations History of Present Illness HPI Narrative: This is a 37-year-old female without significant medical history presenting to the emergency department with progressively worsening left knee pain for the past 4 months. Patient reports this started after she fell on her knee while mopping 4 months ago. Since then has been having intermittent pain, swelling, intermittent tingling and numbness. Reports worse with movement better at rest. Denies fevers and chills. No previous issues with this knee. No new trauma to the knee. Has seen PCP for this has an MRI scheduled for Aug 13 2023 Related Data Previous Rx's Medication Instructions Recorded amoxicillin 875 mg-potassium 1 tab PO Q12H ear infections 10 12/28/20 clavulanate 125 mg tablet days #20 tabs (Augmentin) naproxen 500 mg tablet 500 mg PO BID PRN pain #20 tabs 12/28/20 [id number] 3.3 4 drp otic (ear) right QID otitis 12/28/20 mg-3 mg-10 mg-0.5 mg/mL ear externa 10 days #10 mL drops,susp (Cortisporin-TC) cephalexin 500 mg capsule 500 mg PO QID 5 days #20 caps 02/15/21 chlorhexidine gluconate 0.12 % 15 ml buccal BID #118 mL 10/05/22 mouthwash (Peridex) oxycodone 5 mg tablet 5 mg PO Q4-6H PRN pain #4 tabs 10/05/22 penicillin V potassium 500 mg 500 mg PO QID 7 days #28 tabs 10/05/22 tablet hydrocodone 5 mg-acetaminophen 325 1 tab PO Q8H PRN pain, severe 3 11/18/22 mg tablet days #5 tabs ibuprofen 800 mg tablet 800 mg PO Q8H PRN pain #14 tabs 11/18/22 naproxen 500 mg tablet 500 mg PO BID PRN pain 7 days #14 04/19/23 tabs oxycodone 5 mg capsule 5 mg PO TID PRN pain 3 days #9 caps 04/19/23 prednisone 20 mg tablet 40 mg (2 x 20 mg) PO DAILY 5 days 04/19/23 #10 tabs ketorolac 10 mg tablet 10 mg PO TID PRN pain 5 days #15 08/06/23 tabs prednisone 20 mg tablet 40 mg (2 x 20 mg) PO DAILY 5 days 08/06/23 #10 tabs Allergies Allergy/AdvReac Type Severity Reaction Status Date / Time No Known Allergies Allergy Mild NONE Verified 08/06/23 08:59 Review of Systems Review of Systems: Constitutional : No Weight loss, No Fever, No Chills, No Fatigue, No Malaise ENT/Mouth : No sore throat, No Rhinorrhea Eyes: No Eye Pain, No Swelling, No Redness Cardiovascular : No Chest Pain, No SOB, No Dyspnea on Exertion, No Orthopnea, No Edema, No Palpitations Respiratory : No Cough, No Sputum, No Wheezing Gastrointestinal : No Nausea, No Vomiting, No Diarrhea, No Constipation, No abdominal Pain, No Hematochezia, No Melena Genitourinary : No Dysuria, No Urinary Frequency, No Hematuria, Musculoskeletal : + joint pain, No Myalgias, + Joint Swelling Skin : No Skin Lesions, No rash Neuro : No Weakness, No Numbness, No Dizziness, No Headache Psych : No Anxiety/Panic, No Depression All other systems reviewed and are negative Yes all other systems are reviewed and are negative [facility] Past Medical History Attestation statement: The following information was validated with the patient. Source: old records reviewed and nursing notes reviewed Onset Date is defined in the Problem List Problems that require an onset date and time if occurred within 24 hrs of arrival to the ED Aortic Dissection and Rupture; Neurologic impairment; Cardiopulmonary Arrest; Endotracheal Intubation; Insertion or Replacement of Mechanical Circulatory Assist Device Medical History Asthma Ear infection Surgical History History of ankle surgery Tubal ligation status Social History Social History Substance Use Type: Marijuana Physical Exam Vital Signs: Vital Signs: Last Vital Signs Temp 98 F 08/06/23 08:59 Pulse 76 08/06/23 11:12 Resp 16 08/06/23 11:12 BP 100/51 L 08/06/23 11:12 Pulse Ox 98 08/06/23 11:12 O2 Del Method Room Air 08/06/23 11:12 BMI result Body Mass Index 30.2 Vital signs stable Appearance: Alert.? Oriented X3.? No acute distress.? Head: Normocephalic, atraumatic, no step-offs or deformities Eyes: Pupils equal, round and reactive to light.? CVS: Normal heart rate and rhythm.? Pulses normal.? Respiratory: No respiratory distress.? Breath sounds normal.? Abdomen: Soft and nontender.? Skin: Skin warm and dry.? Normal skin color.? Normal skin turgor.? Extremities: No lower extremity edema.? No calf ttp. 5/5 strength to bilateral upper and lower extremities full range of motion to bilateral knees, ankles, slightly uncomfortable range of motion to left knee. Normal sensation distally. 2+ dorsalis pedis, anterior tibialis posterior tibialis and popliteal pulses equal bilateral. No footdrop. Ambulatory with steady gait normal coordination, appears to have a limp where she is favoring her right side. I do not appreciate overlying effusion or edema to bilateral knees, no overlying skin changes L knee + vaglus Neuro: Oriented X 3.? No motor deficit.? No sensory deficit. CN 2-12 intact Course Reevaluation(s) Reevaluation #1: There is concern for ligament or tendon injury. Will give a knee immobilizer at this time patient has crutches at home. Will also give oral prednisone. Educated patient on diagnosis and treatment plan, answered all question, patient verbalizes understanding. At this time patient will be discharged home, advised to return with new or worsening symptoms. Educated on worrisome signs and symptoms and when to return. At this time I feel comfortable discharge home. Time: 11:24 Medications Administered Discontinued Medications Generic Name Dose Route Start Last Admin Trade Name Freq PRN Reason Stop Dose Admin Ketorolac Tromethamine 30 mg 08/06/23 11:12 08/06/23 11:16 Ketorolac Tromethamine 30 Mg/Ml Vial IM 08/06/23 11:13 30 mg ONCE ONE Administration Medical Decision Making Medical Decision Making [facility] Narrative: 1115 37-year-old female presents with left knee pain and swelling for the past 4 months after fall. MRi scheduled Aug 13 Physical exam significant for No lower extremity edema.? No calf ttp. 5/5 strength to bilateral upper and lower extremities full range of motion to bilateral knees, ankles, slightly uncomfortable range of motion to left knee. Normal sensation distally. 2+ dorsalis pedis, anterior tibialis posterior tibia lis and popliteal pulses equal bilateral. No footdrop. Ambulatory with steady gait normal coordination, appears to have a limp where she is favoring her right side. I do not appreciate overlying effusion or edema to bilateral knees, no overlying skin changes. + L knee + vaglus Likely sprain, strain, contusion vs ligamentous or tendon injury. Unlikely neurovascular compromise, septic joint, threat to Brand, fracture, dislocation. History and physical exam not consistent 30 really or venous occlusion Plan x-ray, Toradol Differential Diagnosis Differential Diagnoses: The differential diagnosis associated with the presentation includes Likely sprain, strain, contusion vs ligamentous or tendon injury. Unlikely neurovascular compromise, septic joint, threat to Brand, fracture, dislocation. History and physical exam not consistent 30 really or venous occlusion Admission/Observation Consideration of admission/observation: Escalation of care including admission/observation considered [facility] Independent Interpretation I performed an independent interpretation of an: Plain X-Ray Radiology Impression Discussion of test interpretation with radiology: I have reviewed the radiologist's reading. Prescription Management I considered prescription management with: Pain Medication Critical Care Time Critical Care Time Critical Care Time: No Discharge Plan Discharge Clinical Impression: Knee pain, left Patient Disposition: Home, Self-Care Instructions: Knee Pain (ED), Arthralgia (ED), R.I.C.E. Treatment (ED) Additional Instructions: Take your medications as prescribed. If you were prescribed antibiotics today, it is important that you take your medication to their entirety, do not skip any doses, do not finish them early. Follow-up with your primary care provider this week. Return to the emergency department with new or worsening symptoms. Such as fevers, chills, chest pain, shortness of breath, nausea, vomiting, dizziness, headache, vision changes, lethargy In case of emergency call 911 Please follow-up with the orthopedic team. Toradol has been sent to your pharmacy, you tolerated this well in the department. Please take this as prescribed do not take this with ibuprofen, or other NSAIDs, do not mix this with alcohol. Side effects of this medication including increased risk for bleeding and possible kidney injury. Prescriptions: New ketorolac 10 mg tablet 10 mg PO TID PRN (Reason: pain) 5 Days Qty: 15 0RF prednisone 20 mg tablet 40 mg PO DAILY 5 Days Qty: 10 0RF No Action amoxicillin-pot clavulanate [Augmentin] 875-125 mg tablet 1 tab PO Q12H 10 Days Qty: 20 0RF naproxen 500 mg tablet 500 mg PO BID PRN (Reason: pain) Qty: 20 0RF Cortisporin-TC 3.3-3-10-0.5 mg/mL drops,suspension 4 drp otic (ear) right QID 10 Days Qty: 10 0RF cephalexin 500 mg capsule 500 mg PO QID 5 Days Qty: 20 0RF penicillin V potassium 500 mg tablet 500 mg PO QID 7 Days Qty: 28 0RF oxycodone 5 mg tablet 5 mg PO Q4-6H PRN (Reason: pain) Qty: 4 0RF Rx Instructions: Partial Fill upon patient request. chlorhexidine gluconate [Peridex] 0.12 % mouthwash 15 ml buccal BID Qty: 118 0RF naproxen 500 mg tablet 500 mg PO BID PRN (Reason: pain) 7 Days Qty: 14 0RF prednisone 20 mg tablet 40 mg PO DAILY 5 Days Qty: 10 0RF oxycodone 5 mg capsule 5 mg PO TID PRN (Reason: pain) 3 Days Qty: 9 0RF Rx Instructions: Partial Fill upon patient request. ibuprofen 800 mg tablet 800 mg PO Q8H PRN (Reason: pain) Qty: 14 0RF hydrocodone-acetaminophen 5-325 mg tablet 1 tab PO Q8H PRN (Reason: pain, severe) 3 Days Qty: 5 0RF Rx Instructions: Partial Fill upon patient request. Referrals: [facility] [place] [place] Orthopedic Surgeons [Provider Group] - 1 week Physician,Unknown J [Primary Care Provider] - 2 days Stand Alone Forms: Work/School Release
[2023-08-06] MEDS: Ketorolac Tromethamine 30 MG/ML VIAL IM (11:16)
--- NOTE | 2023-08-06 11:20 | PC.NURSE ---
xray bedside. medication administered per provider order. ED provider assessing pt.
== END 2023-08-06 11:51 | disposition home or self-care (01) ==
PROVIDERS: Emergency Provider Emergency Medicine
DX: M25.562 Pain in left knee (principal)
CPT/HCPCS: 73564; 96372; 99284; J1885

== ENCOUNTER 2023-08-13 08:46 | Outpatient (REF) | payer MEDICAID, SELFPAY ==
--- NOTE | ~2023-08-13 | MR_ITS ---
EXAMINATION: MR KNEE WITHOUT CONTRAST, LEFT CLINICAL INFORMATION: Left knee pain. COMPARISON: None available. TECHNIQUE: MRI of the knee without contrast was performed using routine sequences on a high-field scanner. FINDINGS: MENISCI: Medial Meniscus: There is irregularity of the free edge of the lateral aspect of the posterior horn with a a partially detached fragment extending just anterior to the posterior root. There is also blunting of the junction of the body and anterior horn with a small partially detached meniscal fragment extending into the meniscal femoral recess best seen on the axial image 15 series 2. This fragment measures 3 x 1 x 1 mm. Lateral Meniscus: Intact. LIGAMENTS: ACL: Mild heterogeneity compatible with mucoid degeneration or minimal partial tearing. No full-thickness or complete tear. Favor mucoid degeneration. PCL: Intact. Collateral: Intact. EXTENSOR MECHANISM: Intact. ARTICULAR CARTILAGE/BONE: Patellofemoral Compartment: Normal. Medial Compartment: Normal. Lateral Compartment: Normal. JOINT FLUID AND BURSAE: Mild effusion. MR/MR knee LT wo con IMPRESSION: 1. Tear of the posterior horn of the medial meniscus with a partially detached meniscal fragment. Tear of the body of the medial meniscus with partially detached meniscal fragment. 2. Mucoid degeneration versus minimal partial tearing of the ACL. Favor mucoid degeneration 3. Mild effusion.
== END 2023-08-13 08:47 | disposition home or self-care (01) ==
LOC: HO.MRI 08:46
PROVIDERS: Visit Provider Registered Nurse
DX: M25.562 Pain in left knee (principal); M25.462 Effusion, left knee
CPT/HCPCS: 73721

== ENCOUNTER 2024-02-18 08:27 | Emergency (ER) | payer MEDICAID, SELFPAY ==
--- NOTE | ~2024-02-18 | CT_ITS ---
EXAMINATION: CT ABDOMEN AND PELVIS WITHOUT CONTRAST CLINICAL INFORMATION: Back pain COMPARISON: None available. TECHNIQUE: Multidetector volumetric imaging was performed from the superior aspect of the liver through the pubic symphysis. Sagittal and coronal reformatted images were obtained on the technologist's workstation. This CT examination was performed using dose optimization techniques as appropriate, variously including the following: *Automated exposure control *Adjustment of mA and/or kV according to patient size (this includes techniques or standardized protocols for targeted exams where dose is matched to indication/reason for exam; i.e. extremities or head) *Use of iterative reconstruction technique DLP: 618 mGy-cm FINDINGS: LUNG BASES: The visualized lung bases are unremarkable. LIVER, GALLBLADDER, AND BILIARY TREE: The liver is normal in size, shape, and attenuation. No focal hepatic lesion or biliary ductal dilatation is present. Gallbladder is contracted. No calcified stones are seen. PANCREAS: Unremarkable. SPLEEN: Unremarkable. ADRENAL GLANDS: Unremarkable. KIDNEYS AND URETERS: There is a 1 mm nephrolith in the lower right kidney. Kidneys otherwise unremarkable. No hydronephrosis or perinephric collection. BLADDER: Unremarkable. GASTROINTESTINAL TRACT: Moderate stool burden the colon. No bowel obstruction or right or left lower quadrant auditory change. Appendix normal. ABDOMINAL WALL: No significant hernia is appreciated. LYMPH NODES: Normal. VASCULAR: Unremarkable. PELVIC VISCERA: Unremarkable. OSSEOUS STRUCTURES: Unremarkable. CT/CT abdomen pelvis wo IV con IMPRESSION: Unremarkable study. No evidence for hydronephrosis or bowel obstruction or right or left lower quadrant inflammatory change. Fleischner guidelines were followed.
[2024-02-18 08:38] VITALS: BP 145/82; PULSE 102; RESP 20; TEMP 36.3; O2SAT 99; BMI 29.3
[2024-02-18 08:59] LABS: MANUAL DIFF FLAG NO
[2024-02-18 09:01] LABS: Basophils Percent Auto 0.5 % (0-2); Eosinophils Absolute Auto 0.6 X10*3/uL (0.0-0.4); Eosinophils Percent Auto 9.2 % (0-4); Hematocrit 38.3 % (37.0-47.0); Hemoglobin 13.1 g/dl (12.0-16.0); Imm Gran Abs Auto 0.01 X10*3/uL (0.00-0.03); Imm Gran Pct Auto 0.2 % (0.0-0.4); Lymphocytes Absolute Auto 1.8 X10*3/uL (1.2-4.9); Lymphocytes Percent Auto 27.3 % (20-40); Mean Corpuscular HGB Conc 34.2 g/dl (31.0-35.0); Mean Corpuscular Hemoglobin 33.3 pg (27.0-33.0); Mean Corpuscular Volume 97.5 fL (80.0-98.0); Mean Platelet Volume 9.5 fL (9.4-12.3); Monocytes Absolute Auto 0.6 X10*3/uL (0.1-1.2); Monocytes Percent Auto 9.8 % (2-11); Neutrophils Absolute Auto 3.4 x10*3/uL (2.0-8.3); Platelet Count 278 X10*3/uL (160-400); Red Blood Count 3.93 X10*6/uL (4.20-5.50); Red Cell Distribution Width 12.2 % (11.0-16.0); White Blood Count 6.4 X10*3/uL (4.8-10.8)
[2024-02-18 09:03] LABS: Appearance Urine Clear; Color Urine Yellow; Glucose Urine UA Negative (Negative); Leukocyte Esterase Urine Negative (Negative); Nitrite Urine Negative (Negative); PH 5.5 (5.0-9.0); Specific Gravity - Urine >= 1.030 (1.005-1.025); UPreg QC Valid YES; Urine Blood Negative (Negative); Urine Ketones Negative (Negative); Urine Protein Negative (Neg-Trace)
[2024-02-18 09:04] LABS: Urine Pregnancy NEGATIVE (NEGATIVE)
--- NOTE | 2024-02-18 09:09 | ED.ABDPAIN ---
HPI - Abdominal Pain General Chief Complaint: Abdominal Pain Stated Complaint: kidney issues Time Seen by Provider: 02/18/24 08:47 Source: patient and RN notes reviewed Mode of arrival: ambulatory Limitations: no limitations History of Present Illness ED Provider: Janee Jacobs PA-C HPI narrative: This is a 38-year-old female who presents emergency department with complaints of urinary urgency and frequency and back pain. Patient states that she went to her primary care physician for a physical, after this visit she was called until her that her kidney function was elevated. She states that over the last 3 days she has had increased back pain, urinary urgency and frequency. She also reports associated abdominal pain that radiates into her back. Describing they abdominal pain as a tight sensation. No sharp pain. She denies any dysuria or hematuria. No history of kidney stones or urinary tract infections. She denies any fevers, chills. She also endorses chest pain which has been constant over the last 3 days. MD elicited complaint: abdominal pain and flank pain Pertinent past history: none Onset (ago): day(s) Pain Consistency: constant Location: none Radiation: none Migration to: no migration Exacerbating factors: nothing Relieving factors: nothing Associated symptoms: denies other symptoms Related Data Previous Rx's ?Medication ?Instructions ?Recorded amoxicillin 875 mg-potassium 1 tab PO Q12H ear infections 10 12/28/20 clavulanate 125 mg tablet days #20 tabs (Augmentin) naproxen 500 mg tablet 500 mg PO BID PRN pain #20 tabs 12/28/20 [id number] 3.3 4 drp otic (ear) right QID otitis 12/28/20 mg-3 mg-10 mg-0.5 mg/mL ear externa 10 days #10 mL drops,susp (Cortisporin-TC) cephalexin 500 mg capsule 500 mg PO QID 5 days #20 caps 02/15/21 chlorhexidine gluconate 0.12 % 15 ml buccal BID #118 mL 10/05/22 mouthwash (Peridex) oxycodone 5 mg tablet 5 mg PO Q4-6H PRN pain #4 tabs 10/05/22 penicillin V potassium 500 mg 500 mg PO QID 7 days #28 tabs 10/05/22 tablet hydrocodone 5 mg-acetaminophen 325 1 tab PO Q8H PRN pain, severe 3 11/18/22 mg tablet days #5 tabs ibuprofen 800 mg tablet 800 mg PO Q8H PRN pain #14 tabs 11/18/22 naproxen 500 mg tablet 500 mg PO BID PRN pain 7 days #14 04/19/23 tabs oxycodone 5 mg capsule 5 mg PO TID PRN pain 3 days #9 caps 04/19/23 prednisone 20 mg tablet 40 mg (2 x 20 mg) PO DAILY 5 days 04/19/23 #10 tabs ketorolac 10 mg tablet 10 mg PO TID PRN pain 5 days #15 08/06/23 tabs prednisone 20 mg tablet 40 mg (2 x 20 mg) PO DAILY 5 days 08/06/23 #10 tabs acetaminophen 650 mg 650 mg PO Q8H PRN pain #30 tabs 02/18/24 tablet,extended release (Tylenol 8 Hour) ibuprofen 600 mg tablet 600 mg PO Q6H PRN pain #30 tabs 02/18/24 Allergies Allergy/AdvReac Type Severity Reaction Status Date / Time No Known Allergies Allergy Mild NONE Verified 02/18/24 08:40 Review of Systems Review of Systems Yes all other systems are reviewed and are negative Constitutional: Reports as per [facility] Past Medical History Attestation statement: The following information was validated with the patient. Medical History Asthma Ear infection Surgical History History of ankle surgery Tubal ligation status Social History Social History Substance Use Type: Marijuana Advance Directives: No Advance Directives Information Provided: Yes Do you have a plan to hurt others: No Plan Physical Exam ED Vital Signs: Vital Signs - 24 hr 02/18/24 08:38 02/18/24 10:18 Temperature 97.3 F 97.9 F Pulse Rate 102 H 54 Respiratory Rate 20 16 Blood Pressure 145/82 H 107/44 L Pulse Oximetry 99 100 Oxygen Delivery Method Room Air Room Air BMI result Body Mass Index 29.3 Const General: cooperative, comfortable and no acute distress Orientation/consciousness: patient oriented x3 Limitations: no limitations HENMT Head: Yes normal to inspection, Yes normocephalic and Yes atraumatic Ears: hearing grossly normal bilaterally General nose exam: Normal external nose present Face and sinus: Yes normal facial exam Mouth: Normal oral and palatal mucosa present, oropharynx normal and moist mucous membranes Throat: Yes posterior oropharynx normal Eyes General: appearance normal, both eyes and all related structures Eyelids: Yes eyelids normal Conjunctivae: conjunctivae normal Sclerae: sclerae normal Pupils: Equal, round and reactive pupils present EOM: EOMs intact bilaterally Neck Neck: Yes normal visual inspection, Yes full ROM and Yes no lymphadenopathy Lymphatic: no lymphadenopathy noted Chest Chest palpation & inspection: normal inspection of the chest Resp Effort & Inspection: normal respiratory effort and able to speak in complete sentences Auscultation: clear to auscultation bilaterally, no crackles, no rales, no rhonchi and no wheezes Cardio Rate: regular rate Rhythm: regular rhythm Heart sounds: S1 normal heart sound present and S2 normal heart sound present GI Other: Abdomen is soft, with mild ttp in the suprapubic region, no rebound or guarding Inspection: Yes normal to inspection Other: mild BL CVA tenderness Skin General skin exam: no rashes or lesions noted Trauma: no lacerations or abrasions Wounds: no wounds Neuro General: patient oriented x3 and moves all extremities Cranial nerves: Yes Equal, round and reactive pupils present Extrem General: Yes normal to inspection Right upper extremity: normal to inspection Left upper extremity: normal to inspection Right lower extremity: normal to inspection Left lower extremity: normal to inspection Course Reevaluation(s) Reevaluation #3: Spoke to radiologist, reporting that she does have a 1 mm kidney stone without any surrounding hydronephrosis, nonobstructing, discussed this with patient. Given patient has normal labs, urine does not appear to be infected, unclear what is causing her to have this pain however workup today was reassuring. Discussed this with patient. She is feeling much better, patient stable for discharge Time: 13:55 Medical Decision Making Medical Decision Making MDM Narrative: This is a 38-year-old female who presents emergency department with complaints of abdominal pain, urinary frequency and urgency. No dysuria. On arrival, patient mildly hypertensive at 145/82, she is afebrile. She appears to be comfortable. On examination she does have suprapubic tenderness on examination with bilateral CVA tenderness. Differential diagnoses include nephrolithiasis, cysititis, mass, diverticulitis, diverticulosis. Plan: Labs, UA, CT abd/pelvis Differential Diagnosis Differential Diagnoses: The differential diagnosis associated with the presentation includes see above Admission/Observation Consideration of admission/observation: Escalation of care including admission/observation considered Lab Data MDM Lab Attestation statement: I reviewed the patient's lab results. No leukocytosis, H&H within normal limits. No evidence of CONCHA, creatinine 0.7, BUN 11, urine specific gravity elevated, no evidence of infection on urinalysis 02/18/24 08:55 02/18/24 08:55 Labs: Lab Results 02/18/24 Range/Units 08:55 WBC 6.4 (4.8-10.8) X10*3/uL RBC 3.93 L (4.20-5.50) X10*6/uL Hgb 13.1 (12.0-16.0) g/dl Hct 38.3 (37.0-47.0) % MCV 97.5 (80.0-98.0) fL MCH 33.3 H (27.0-33.0) pg MCHC 34.2 (31.0-35.0) g/dl RDW 12.2 (11.0-16.0) % Plt Count 278 (160-400) X10*3/uL MPV 9.5 (9.4-12.3) fL Immature Gran % (Auto) 0.2 (0.0-0.4) % Neut % (Auto) 53.0 (45-73) % Lymph % (Auto) 27.3 (20-40) % Hernando % (Auto) 9.8 (2-11) % Eos % (Auto) 9.2 H (0-4) % Baso % (Auto) 0.5 (0-2) % Lymph # (Auto) 1.8 (1.2-4.9) X10*3/uL Hernando # (Auto) 0.6 (0.1-1.2) X10*3/uL Eos # (Auto) 0.6 H (0.0-0.4) X10*3/uL Baso # (Auto) 0.0 (0.0-0.2) X10*3/uL Abs Immat Gran (auto) 0.01 (0.00-0.03) X10*3/uL Absolute Neuts (auto) 3.4 (2.0-8.3) x10*3/uL Absolute Nucleated RBC 0.000 (0.0-0.012) X10*3/uL Nucleated RBC % (auto) 0.0 (0.0-0.2) /100WBC Sodium 141 (135-145) mmol/L Potassium 4.0 (3.3-5.1) mmol/L Chloride 113 H (96-108) mmol/L Carbon Dioxide 19 L (22-29) mmol/L Anion Gap 13 (12-20) BUN 11 (9-16) mg/dL Creatinine 0.70 (0.5-1.4) mg/dL Estim Creat Clear Calc 99.6 Estimated GFR > 60 Random Glucose 101 (60-115) mg/dL Calcium 8.7 (8.4-10.2) mg/dL Total Bilirubin 0.4 (0.0-1.0) mg/dL AST 14 (5-31) U/L ALT 17 (0-31) U/L Alkaline Phosphatase 86 (39-117) U/L Troponin I High Sens < 2.7 (<3.5-17.0) ng/L Total Protein 6.2 L (6.5-8.0) g/dL Albumin 4.0 (3.5-5.0) g/dL Urine Color Yellow Urine Appearance Clear Urine pH 5.5 (5.0-9.0) Ur Specific Boyce >= 1.030 H (1.005-1.025) Urine Protein Negative (Neg-Trace) mg/dL Urine Glucose (UA) Negative (Negative) mg/dL Urine Ketones Negative (Negative) mg/dL Urine Blood Negative (Negative) Urine Nitrite Negative (Negative) Ur Leukocyte Esterase Negative (Negative) Urine Test NEGATIVE (NEGATIVE) Radiology Impression Discussion of test interpretation with radiology: I have reviewed the radiologist's reading. Medications Administered Discontinued Medications Generic Name Dose Route Start Last Admin Trade Name Freq PRN Reason Stop Dose Admin Sodium Chloride 1,000 mls @ 999 mls/hr 02/18/24 09:07 02/18/24 11:32 Ns IV 02/18/24 10:07 Infused .Q1H1M ONE Infusion Ketorolac Tromethamine 30 mg 02/18/24 11:18 02/18/24 11:32 Ketorolac Tromethamine 30 Mg/Ml Vial IVPUSH 02/18/24 11:19 30 mg ONCE ONE Administration Discharge Plan Discharge Clinical Impression: Back pain Qualifiers: Back pain location: low back pain Chronicity: acute Back pain laterality: right Sciatica presence: without sciatica Qualified Code(s): M54.50 - Low back pain, unspecified Patient Disposition: Home, Self-Care Instructions: Back Pain (ED) Additional Instructions: You were seen in the emergency department due to back pain. Your labs were reassuring. Your urine does not appear to be infected. Drink plenty of fluids get plenty of rest. It is unclear what is causing you to have the symptoms however you do have a 1 mm kidney stone on the right, this should not cause you to have the symptoms. Please monitor your symptoms, return if you develop any chest pain, shortness breath, severe abdominal pain, fevers, please return for re-evaluation. Prescriptions: New ibuprofen 600 mg tablet 600 mg PO Q6H PRN (Reason: pain) Qty: 30 0RF acetaminophen [Tylenol 8 Hour] 650 mg tablet extended release 650 mg PO Q8H PRN (Reason: pain) Qty: 30 0RF No Action amoxicillin-pot clavulanate [Augmentin] 875-125 mg tablet 1 tab PO Q12H 10 Days Qty: 20 0RF naproxen 500 mg tablet 500 mg PO BID PRN (Reason: pain) Qty: 20 0RF Cortisporin-TC 3.3-3-10-0.5 mg/mL drops,suspension 4 drp otic (ear) right QID 10 Days Qty: 10 0RF cephalexin 500 mg capsule 500 mg PO QID 5 Days Qty: 20 0RF penicillin V potassium 500 mg tablet 500 mg PO QID 7 Days Qty: 28 0RF oxycodone 5 mg tablet 5 mg PO Q4-6H PRN (Reason: pain) Qty: 4 0RF Rx Instructions: Partial Fill upon patient request. chlorhexidine gluconate [Peridex] 0.12 % mouthwash 15 ml buccal BID Qty: 118 0RF naproxen 500 mg tablet 500 mg PO BID PRN (Reason: pain) 7 Days Qty: 14 0RF prednisone 20 mg tablet 40 mg PO DAILY 5 Days Qty: 10 0RF oxycodone 5 mg capsule 5 mg PO TID PRN (Reason: pain) 3 Days Qty: 9 0RF Rx Instructions: Partial Fill upon patient request. ketorolac 10 mg tablet 10 mg PO TID PRN (Reason: pain) 5 Days Qty: 15 0RF prednisone 20 mg tablet 40 mg PO DAILY 5 Days Qty: 10 0RF ibuprofen 800 mg tablet 800 mg PO Q8H PRN (Reason: pain) Qty: 14 0RF hydrocodone-acetaminophen 5-325 mg tablet 1 tab PO Q8H PRN (Reason: pain, severe) 3 Days Qty: 5 0RF Rx Instructions: Partial Fill upon patient request. Interventions: ED Discharge Assessment Last Done: 02/18/24 14:11 Discharge Date/Time: 02/18/24 14:12 Print Language: Bots[place]an
--- NOTE | 2024-02-18 09:10 | ECG_ITS ---
Test Reason : cp Blood Pressure : / mmHG Vent. Rate : 063 BPM Atrial Rate : 063 BPM P-R Int : 168 ms QRS Dur : 078 ms QT Int : 410 ms P-R-T Axes : 063 072 053 degrees QTc Int : 419 ms Normal sinus rhythm with sinus arrhythmia Normal ECG No previous ECGs available Referred By: Janee Jacobs Electronically Signed By:AMIE SAHNI MD
[2024-02-18 09:17] LABS: Alanine Aminotransferase 17 U/L (0-31); Alkaline Phosphatase 86 U/L (39-117); Anion Gap 13 (12-20); Aspartate Amino Transferase 14 U/L (5-31); Bilirubin Total 0.4 mg/dL (0.0-1.0); Blood Urea Nitrogen 11 mg/dL (9-16); Calcium 8.7 mg/dL (8.4-10.2); Carbon Dioxide 19 mmol/L (22-29); Chloride 113 mmol/L (96-108); Creatinine Clr Calc Pharmacy 99.6; Estimated Glomerular Filt Rate > 60; Glucose Random 101 mg/dL (60-115); Sodium 141 mmol/L (135-145); Total Protein 6.2 g/dL (6.5-8.0)
--- NOTE | 2024-02-18 09:26 | PC.NURSE ---
PT coming for concerns of bilat flank pain. Pt reporting she is needing knee surgery, went to her PCP for clearance, was told your kidneys arent functionig and has gotten no follow up since Pt now having pain with palpitation.
[2024-02-18] MEDS: 0.9 % Sodium Chloride 1,000 ML 999 ML IV (09:54)
[2024-02-18 09:56] LABS: Troponin-I High Sensitivity < 2.7 ng/L (<3.5-17.0)
[2024-02-18 10:18] VITALS: BP 107/44; PULSE 54; RESP 16; TEMP 36.6; O2SAT 100
[2024-02-18] MEDS: Ketorolac Tromethamine 30 MG/ML VIAL IVPUSH (11:32)
[2024-02-18 14:11] VITALS: BP 110/72; PULSE 60; RESP 18; TEMP 36.6; O2SAT 97
== END 2024-02-18 14:12 | disposition home or self-care (01) ==
PROVIDERS: Physician Assistant Medical; Emergency Provider Student in an Organized Health Care Education/Training Program
DX: M54.50 Low back pain, unspecified (principal); R11.2 Nausea with vomiting, unspecified; Z79.899 Other long term (current) drug therapy
CPT/HCPCS: 36415; 74176; 80053; 81003; 81025; 84484; 85025; 93005; 96361; 96374; 99284; 99285; J1885

== ENCOUNTER → 2024-02-18 09:10 | Outpatient (BNV) | payer MEDICAID, SELFPAY | PROVIDERS: Emergency Provider Student in an Organized Health Care Education/Training Program; Visit Provider Internal Medicine Cardiovascular Disease | DX: I49.9 Cardiac arrhythmia, unspecified (principal) | CPT/HCPCS: 93010 ==

== ENCOUNTER 2024-11-29 07:43 | Emergency (ER) | payer MEDICAID, SELFPAY ==
[2024-11-29 07:53] VITALS: BP 115/43; PULSE 60; RESP 19; TEMP 36.7; O2SAT 98; BMI 30.9
--- NOTE | 2024-11-29 10:00 | ED.GENADULT ---
HPI - General Adult General Chief complaint: General Medical Stated complaint: swollen face Time Seen by Provider: 11/29/24 09:30 Source: patient Mode of arrival: ambulatory Limitations: no limitations History of Present Illness ED Provider: Rhianna Thompson NP HPI narrative: Patient is a 39-year-old female who presents emergency department for evaluation of right nasal/facial pain. She reports a few days ago she noticed a pimple to the inside of her septum on the right side. She attempted to pop it was not able to get very much pus out. She has since developed swelling that extends to the upper lip and outside of the right external nare. She denies fevers or chills, eye pain or swelling, headache, neck pain, throat pain, dental pain. Denies known history of MRSA infection Related Data Previous Rx's ?Medication ?Instructions ?Recorded amoxicillin 875 mg-potassium 1 tab PO Q12H ear infections 10 12/28/20 clavulanate 125 mg tablet days #20 tabs (Augmentin) naproxen 500 mg tablet 500 mg PO BID PRN pain #20 tabs 12/28/20 [id number] 3.3 4 drp otic (ear) right QID otitis 12/28/20 mg-3 mg-10 mg-0.5 mg/mL ear externa 10 days #10 mL drops,susp (Cortisporin-TC) cephalexin 500 mg capsule 500 mg PO QID 5 days #20 caps 02/15/21 chlorhexidine gluconate 0.12 % 15 ml buccal BID #118 mL 10/05/22 mouthwash (Peridex) oxycodone 5 mg tablet 5 mg PO Q4-6H PRN pain #4 tabs 10/05/22 penicillin V potassium 500 mg 500 mg PO QID 7 days #28 tabs 10/05/22 tablet hydrocodone 5 mg-acetaminophen 325 1 tab PO Q8H PRN pain, severe 3 11/18/22 mg tablet days #5 tabs ibuprofen 800 mg tablet 800 mg PO Q8H PRN pain #14 tabs 11/18/22 naproxen 500 mg tablet 500 mg PO BID PRN pain 7 days #14 04/19/23 tabs oxycodone 5 mg capsule 5 mg PO TID PRN pain 3 days #9 caps 09/15/23 prednisone 20 mg tablet 40 mg (2 x 20 mg) PO DAILY 5 days 04/19/23 #10 tabs ketorolac 10 mg tablet 10 mg PO TID PRN pain 5 days #15 08/06/23 tabs prednisone 20 mg tablet 40 mg (2 x 20 mg) PO DAILY 5 days 08/06/23 #10 tabs acetaminophen 650 mg 650 mg PO Q8H PRN pain #30 tabs 02/18/24 tablet,extended release (Tylenol 8 Hour) ibuprofen 600 mg tablet 600 mg PO Q6H PRN pain #30 tabs 02/18/24 amoxicillin 875 mg-potassium 1 tab PO BID #13 tabs 11/29/24 clavulanate 125 mg tablet Allergies Allergy/AdvReac Type Severity Reaction Status Date / Time No Known Allergies Allergy Mild NONE Verified 11/29/24 07:55 Review of Systems Review of Systems: Yes all other systems are reviewed and are negative [facility] Past Medical History Attestation statement: The following information was validated with the patient. Source: old records reviewed Medical History Asthma Ear infection Surgical History History of ankle surgery Tubal ligation status Social History Social History Substance Use Type: Marijuana Advance Directives: No Advance Directives Information Provided: No Do you have a plan to hurt others: No Plan Physical Exam ED Vital Signs: Vital Signs - 24 hr 11/29/24 07:53 Temperature 98.1 F Pulse Rate 60 Respiratory Rate 19 Blood Pressure 115/43 L Pulse Oximetry 98 Oxygen Delivery Method Room Air BMI result Body Mass Index 30.9 Appearance: Alert.?Oriented to person, place and time. No acute distress.?Normal affect. Eyes: Pupils equal, round and reactive to light.? EOMI. No periorbital cellulitis ENT: Pharynx normal.? Dentition is normal. No apparent abscess or gingivitis. There is an erythematous excoriation to the right septum, there is palpable tenderness and localized swelling to the right upper lip/perinasal region with mild erythema ? Neck: Normal inspection.? Neck supple.??Full range of motion. CVS: Heart sounds normal. Normal heart rate and rhythm.? Pulses normal.?? Respiratory: No respiratory distress.? Lung sounds clear to auscultation bilaterally?? Skin: Skin warm and dry.? Normal skin color. Neuro: Moves all extremities spontaneously. Sensation intact bilaterally. Ambulates with normal steady gait. Medical Decision Making Medical Decision Making MDM Narrative: Patient is a 39-year-old female nondiabetic with no history of MRSA who presents emergency department expressed concern for an infection to the right nostril as per HPI. On examination, she appears to have a localized cellulitis, no appreciable abscess or fluctuance. No dental abscess or infection is present. No signs of systemic toxicity she is afebrile without tachycardia and no hypotension. We discussed localized wound care topical antibiotic ointment to the excoriation on the nasal septum, provided with first dose of Augmentin in the emergency department sent remainder prescription to pharmacy with instructions on conservative treatment warm moist compresses. Outpatient follow-up with primary care doctor and strict return precautions were discussed. Differential Diagnosis Differential Diagnoses: The differential diagnosis associated with the presentation includes (See narrative above) Independent Historian Clinical information obtained from an independent historian. History obtained from or confirmed by: Spouse Prescription Management I considered prescription management with: Antibiotic Discharge Plan Discharge Clinical Impression: Cellulitis of face Patient Disposition: Home, Self-Care Instructions: Cellulitis (ED) Additional Instructions: You were given the first dose of antibiotics in the emergency department, potato picker your prescription today to take the second dose this evening and complete the remainder of the course. Do not skip any doses or stop taking early even if you begin to feel better. Line apply warm moist compresses to the area for 10-15 minutes 3-4 times daily. You can take ibuprofen 200 mg, 3 tablets (600mg) every 6-8 hours as needed for pain, in addition to Tylenol 500 mg, 2 tablets (1,000mg) every 4-6 hours as needed for pain, but not to exceed 3 doses daily (3,000mg).? Follow-up with your primary care doctor. Return to emergency department any new or worsening symptoms or concerns which includes but is not limited to severe worsening pain, swelling, redness, fevers, chills Prescriptions: New amoxicillin-pot clavulanate 875-125 mg tablet 1 tab PO BID Qty: 13 0RF No Action amoxicillin-pot clavulanate [Augmentin] 875-125 mg tablet 1 tab PO Q12H 10 Days Qty: 20 0RF naproxen 500 mg tablet 500 mg PO BID PRN (Reason: pain) Qty: 20 0RF Cortisporin-TC 3.3-3-10-0.5 mg/mL drops,suspension 4 drp otic (ear) right QID 10 Days Qty: 10 0RF cephalexin 500 mg capsule 500 mg PO QID 5 Days Qty: 20 0RF penicillin V potassium 500 mg tablet 500 mg PO QID 7 Days Qty: 28 0RF oxycodone 5 mg tablet 5 mg PO Q4-6H PRN (Reason: pain) Qty: 4 0RF Rx Instructions: Partial Fill upon patient request. chlorhexidine gluconate [Peridex] 0.12 % mouthwash 15 ml buccal BID Qty: 118 0RF naproxen 500 mg tablet 500 mg PO BID PRN (Reason: pain) 7 Days Qty: 14 0RF prednisone 20 mg tablet 40 mg PO DAILY 5 Days Qty: 10 0RF oxycodone 5 mg capsule 5 mg PO TID PRN (Reason: pain) 3 Days Qty: 9 0RF Rx Instructions: Partial Fill upon patient request. ketorolac 10 mg tablet 10 mg PO TID PRN (Reason: pain) 5 Days Qty: 15 0RF prednisone 20 mg tablet 40 mg PO DAILY 5 Days Qty: 10 0RF ibuprofen 600 mg tablet 600 mg PO Q6H PRN (Reason: pain) Qty: 30 0RF acetaminophen [Tylenol 8 Hour] 650 mg tablet extended release 650 mg PO Q8H PRN (Reason: pain) Qty: 30 0RF ibuprofen 800 mg tablet 800 mg PO Q8H PRN (Reason: pain) Qty: 14 0RF hydrocodone-acetaminophen 5-325 mg tablet 1 tab PO Q8H PRN (Reason: pain, severe) 3 Days Qty: 5 0RF Rx Instructions: Partial Fill upon patient request. Referrals: [place],[facility] [Primary Care Provider] - Print Language: Wolof
[2024-11-29] MEDS: Amoxicillin/Potassium Clav 875 MG TABLET PO (10:27)
[2024-11-29 10:28] VITALS: BP 115/43; PULSE 60; RESP 19; TEMP 36.7; O2SAT 98
== END 2024-11-29 10:30 | disposition home or self-care (01) ==
PROVIDERS: Emergency Provider Emergency Medicine; PCP Dentist General Practice
DX: J34.0 Abscess, furuncle and carbuncle of nose (principal)
CPT/HCPCS: 99282; 99283

== ENCOUNTER 2025-02-21 11:11 | Emergency (ER) | payer MEDICAID, SELFPAY ==
[2025-02-21 11:25] VITALS: BP 113/67; PULSE 83; RESP 16; TEMP 36.2; O2SAT 100; BMI 30.7
--- NOTE | 2025-02-21 11:25 | ED_ITS ---
HPI - General Adult General Chief complaint: Skin/Abscess/Foreign Body Stated complaint: left side swollen painful swelling comes and goes Time Seen by Provider: 02/21/25 11:29 Source: patient Mode of arrival: ambulatory Limitations: no limitations History of Present Illness ED Provider: Farheen Lemus APRN HPI narrative: 39 yo female with no PMH presents to the ER with reports of intermittent left sided facial swelling when she eats certain foods. Most of the time this resolves without intervention. Saturday night she had watermelon sour patch kids then noticed several hours later pain and swelling in the left side of the face. It has not resolved with APAP at home. She denies fevers, chills, difficulty swallowing, difficulty breathing, sore throat, dental pain, chest pain, neck pa in. Related Data Previous Rx's ?Medication ?Instructions ?Recorded amoxicillin 875 mg-potassium 1 tab PO Q12H ear infecti ons 10 12/28/20 clavulanate 125 mg tablet days #20 tabs (Augmentin) naproxen 500 mg tablet 500 mg PO BID PRN pain #20 t abs 12/28/20 [id number] 3.3 4 drp otic (ear) right QID otitis 12/28/20 mg-3 mg-10 mg-0.5 mg/mL ear externa 10 days #10 mL drops,susp (Cortisporin-TC) cephalexin 500 mg capsule 500 mg PO QID 5 days #20 cap s 02/15/21 chlorhexidine gluconate 0.12 % 15 ml buccal BID #118 m L 10/05/22 mouthwash (Peridex) oxycodone 5 mg tablet 5 mg PO Q4-6H PRN pain #4 ta bs 10/05/22 penicillin V potassium 500 mg 500 mg PO QID 7 days #28 tabs 10/05/22 tablet hydrocodone 5 mg-acetaminophen 325 1 tab PO Q8H PRN pa in, severe 3 11/18/22 mg tablet days #5 tabs ibuprofen 800 mg tablet 800 mg PO Q8H PRN pain #14 t abs 11/18/22 naproxen 500 mg tablet 500 mg PO BID PRN pain 7 day s #14 04/19/23 tabs oxycodone 5 mg capsule 5 mg PO TID PRN pain 3 days #9 caps 04/19/23 prednisone 20 mg tablet 40 mg (2 x 20 mg) PO DAILY 5 days 04/19/23 #10 tabs ketorolac 10 mg tablet 10 mg PO TID PRN pain 5 days #15 08/06/23 tabs prednisone 20 mg tablet 40 mg (2 x 20 mg) PO DAILY 5 days 08/06/23 #10 tabs acetaminophen 650 mg 650 mg PO Q8H PRN pain #30 t abs 02/18/24 tablet,extended release (Tylenol 8 Hour) ibuprofen 600 mg tablet 600 mg PO Q6H PRN pain #30 t abs 02/18/24 amoxicillin 875 mg-potassium 1 tab PO BID #13 tabs clavulanate 125 mg tablet clindamycin HCl 300 mg capsule 300 mg PO TID 10 days # 30 caps 02/21/25 (Cleocin HCl) Allergies Allergy/AdvReac Type Severity Reaction Status Date / Time No Known Allergies Allergy Mild NONE Verified 02/21/25 11:26 Review of Systems Review of Systems: Yes all other systems are reviewed and are negative Constitutional: Constitutional: Reports no additional constitutional complaints, Denies body ache(s), Denies chills, Denies fever(s), Denies headache(s) and Denies weakness Eyes: Eyes: Reports no additional eye complaints and Denies change in vision ENT: Reports system reviewed and no additional complaints, except as documented, Denies dysphagia, Denies dizziness, Reports facial pain, Denies headache(s), Denies nasal congestion, Denies nasal discharge, Denies neck pain and Denies sore throat Cardiovascular: Cardiovascular: Reports no additional cardiovascular complaints, Denies chest pain, Denies leg edema and Denies dyspnea Respiratory: Respiratory: Reports no additional respiratory complaints, Denies cough and Denies dyspnea Gastrointestinal: Gastrointestinal: Reports no additional gastrointestinal complaints, Denies abdominal pain, Denies dysphagia, Denies diarrhea, Denies nausea and Denies vomiting Genitourinary: Genitourinary: Reports no additional female genitourinary complaints and Denies urinary incontinence Musculoskeletal: Musculoskeletal: Reports no additional musculoskeletal complaints, Denies back pain, Denies arthralgias, Denies joint swelling, Denies neck pain, Denies numbness and Denies tingling Integumentary/Breasts: Skin/Breast: Reports system reviewed and no additional complaints, except as docu and Denies rash Neurologic: Reports system reviewed and no additional complaints, except as documented, Denies Abnormal speech present, Denies dizziness, Denies headache(s), Denies numbness, Denies tingling and Denies weakness PMFSH Past Medical History Attestation statement: The following information was validated with the patient. Source: old records reviewed and nursing notes reviewed Medical History Asthma Ear infection Surgical History History of ankle surgery Tubal ligation status Social History Social History Substance Use Type: Marijuana Advance Directives: No Advance Directives Information Provided: Yes Physical Exam ED Vital Signs: Vital Signs - 24 hr 02/21/25 11:25 Temperature 97.2 F Pulse Rate 83 Respiratory Rate 16 Blood Pressure 113/67 Pulse Oximetry 100 Oxygen Delivery Method Room Air BMI result Body Mass Index 30.7 Const General: cooperative, healthy appearing, comfortable and no acute distress Orientation/consciousness: patient oriented x3 Limitations: no limitations HENMT Other: L parotid swelling/mild TTP No trismus Head: Yes normal to inspection Ears: hearing grossly normal bilaterally and TM's normal bilaterally General nose exam: Normal external nose present Face and sinus: Yes normal facial exam Mouth: Normal oral and palatal mucosa present Throat: Yes posterior oropharynx normal, Yes tonsils normal and Yes uvula midline Eyes General: appearance normal, both eyes and all related structures Pupils: Equal, round and reactive pupils present Neck Neck: Yes normal visual inspection, Yes full ROM, Yes no lymphadenopathy and Yes no meningeal signs Chest Chest palpation & inspection: normal inspection of the chest Resp Effort & Inspection: normal respiratory effort Auscultation: clear to auscultation bilaterally Cardio Rate: regular rate Rhythm: regular rhythm Peripheral pulses: Peripheral pulses 2+ throughout GI Inspection: Yes normal to inspection Palpation (GI): Soft to palpation and nontender Auscultation: normal bowel sounds Back/Spine/Pelvis Thoracic/Lumbar Spine: thoracic and lumbar spine normal to inspection Skin General skin exam: no rashes or lesions noted Neuro General: patient oriented x3, no meningeal signs, no focal motor deficits and normal sensation to monofilament Cranial nerves: Yes Equal, round and reactive pupils present Cognition (Neuro): normal cognition Speech: No Abnormal speech present Gait exam (Neuro): Normal gait present Motor exam (neuro): 5/5 motor strength present throughout Extrem General: Yes normal to inspection Course Course Course Narrative: Harpreet Lemus [employer] 02/21 1125 This is a rapid medical exam. Deferred additional HPI, ROS, PE to primary provider. 39 yo female with no PMH Medical Decision Making Medical Decision Making [facility] Narrative: 39 yo female with no PMH presents to the ER with reports of intermittent left sided facial swelling when she eats certain foods. Most of the time this resolves without intervention. Saturday night she had watermelon sour patch kids then noticed several hours later pain and swelling in the left side of the face. It has not resolved with APAP at home. She denies fevers, chills, difficulty swallowing, difficulty breathing, sore throat, dental pain, chest pain, neck pain. Exam c/w with acute parotis. Patient may component of chronic. No airway involvement. Uvula midline. Tolerating secretions. Will treat with antibiotics, OTC analgesia, home care. Recommend f//u with PCP for continued symptoms. Reviewed worrisome s/s with patient and when to seek additional care. Differential Diagnosis Differential Diagnoses: The differential diagnosis associated with the presentation includes Parotitis Less likely RPA, ASBESTOS MICROSCOPIST, epiglotitis, ludwigs angina Admission/Observation Consideration of admission/observation: Escalation of care including admission/observation considered Mild parotitis with no airway involvement, patient tolerating secretions, no systemic s/s requiring admission Tests considered The following testing was considered but not selected: Low suspicion for ASBESTOS MICROSCOPIST/RPA/epiglotttis or ludwigs requiring ct imaging Prescription Management I considered prescription management with: Pain Medication and Antibiotic Discharge Plan Discharge Clinical Impression: Acute parotitis Patient Disposition: Home, Self-Care Instructions: Sialoadenitis (ED) Additional Instructions: Motrin and Tylenol for pain Increase fluids, rest Suck on sour candy at home Return for fever, increased swelling, difficulty breathing or difficulty swallo wing Follow-up with your primary care doctor for any continued episodes Prescriptions: New clindamycin HCl [Cleocin HCl] 300 mg capsule 300 mg PO TID 10 Days Qty: 30 0RF No Action amoxicillin-pot clavulanate [Augmentin] 875-125 mg tablet 1 tab PO Q12H 10 Days Qty: 20 0RF naproxen 500 mg tablet 500 mg PO BID PRN (Reason: pain) Qty: 20 0RF Cortisporin-TC 3.3-3-10-0.5 mg/mL drops,suspension 4 drp otic (ear) right QID 10 Days Qty: 10 0RF cephalexin 500 mg capsule 500 mg PO QID 5 Days Qty: 20 0RF penicillin V potassium 500 mg tablet 500 mg PO QID 7 Days Qty: 28 0RF oxycodone 5 mg tablet 5 mg PO Q4-6H PRN (Reason: pain) Qty: 4 0RF Rx Instructions: Partial Fill upon patient request. chlorhexidine gluconate [Peridex] 0.12 % mouthwash 15 ml buccal BID Qty: 118 0RF naproxen 500 mg tablet 500 mg PO BID PRN (Reason: pain) 7 Days Qty: 14 0RF prednisone 20 mg tablet 40 mg PO DAILY 5 Days Qty: 10 0RF oxycodone 5 mg capsule 5 mg PO TID PRN (Reason: pain) 3 Days Qty: 9 0RF Rx Instructions: Partial Fill upon patient request. ketorolac 10 mg tablet 10 mg PO TID PRN (Reason: pain) 5 Days Qty: 15 0RF prednisone 20 mg tablet 40 mg PO DAILY 5 Days Qty: 10 0RF ibuprofen 600 mg tablet 600 mg PO Q6H PRN (Reason: pain) Qty: 30 0RF acetaminophen [Tylenol 8 Hour] 650 mg tablet extended release 650 mg PO Q8H PRN (Reason: pain) Qty: 30 0RF ibuprofen 800 mg tablet 800 mg PO Q8H PRN (Reason: pain) Qty: 14 0RF hydrocodone-acetaminophen 5-325 mg tablet 1 tab PO Q8H PRN (Reason: pain, severe) 3 Days Qty: 5 0RF Rx Instructions: Partial Fill upon patient request. amoxicillin-pot clavulanate 875-125 mg tablet 1 tab PO BID Qty: 13 0RF Referrals: Physician,Nonstaff [Physician, Medical] Discharge Date/Time: 02/21/25 11:37 Print Language: Turkish
--- OUTSIDE RECORDS SUMMARY | 2025-02-21 11:35 | XMS_ITS | Clinical Summary ---
Author Organization [facility] Address [address] [place] [address] Care Team Providers Care Field Specialist Name Role Phone Alyse Gifford NP Primary Care Provider [phone] Source Comments PLEASE NOTE, if this patient is a minor, it may be UNLAWFUL to discuss sensitive information that is contained in these records (such as FAMILY PLANNING, MENTAL HEALTH or SUBSTANCE ABUSE) with the minor patient's parent or other person without the patient's specific authorization.[facility] Allergies No known active allergies Medications albuterol HFA 90 mcg/actuation inhalerIndications :SOB (shortness of breath) Inhale 2 Puffs into the lungs every 4 to 6 (four to six) hours as needed for shortness of breath 18 g 2 3 Active sertraline (ZOLOFT) 100 mg tabletIndications: PTSD (post-traumatic stress disorder),Episode of recurrent major depressive disorder, unspecified depression episode severity (CMS-HCC V24) TAKE 1 TABLET BY MOUTH EVERY DAY IN THE MORNING 90 Tablet 1 3 Active ibuprofen 600 mg tabletIndications: Chronic nonintractable headache, unspecified headache type Take 1 Tablet by mouth 4 (four) times daily as needed for pain 30 Tablet 2 4 Active clotrimazole (LOTRIMIN) 1 % cream Apply topically 2 (two) times daily 15 g 4 Active lidocaine (LIDODERM) 5 % patch Place 1 Patch onto the skin daily. Apply 1 patch to the affected area for a maximum of 12 hours, followed by removal for 12 hours. 30 Patch 1 4 Active diclofenac sodium (VOLTAREN) 1 % gel Apply 2 g topically 2 (two) times daily 450 g 1 4 Active cetirizine (ZYRTEC) 10 mg tabletIndications: Seasonal allergies TAKE 1 TABLET BY MOUTH EVERY DAY 90 Tablet 1 4 Active budesonide-formote roL (SYMBICORT) 160-4.5 mcg/actuation inhalerIndications :Moderate persistent asthma without complication ([facility]) INHALE 2 PUFFS INTO THE LUNGS TWICE A DAY 10.2 g 2 5 Active traZODone (DESYREL) 100 mg tabletIndications: Insomnia, unspecified type TAKE 1 TABLET BY MOUTH NIGHTLY AT BEDTIME NEEDED FOR SLEEP 90 Tablet 1 5 Active Active Problems Problem Noted Date Diagnosed Date Sialadenitis 05/06/2017 Tobacco abuse 06/06/2016 Cocaine abuse ([facility] 05/18/2016 Overview (05/18/2016): Being followed by Birgit- TON/ canabis use, and this dx- , psych at [facility]- [address] [place] [address] [facility] following [phone] Cannabis abuse 05/09/2016 Overview (05/09/2016): birgit calix received 05/09/16- - tx her for TON,Cannabis abuse cocaine abuse- - pt reports taking a ADHD drug and a bipolar drug- psych [facility] [address] [facility] [phone] dated 04/2016 H/O CT scan of abdomen 04/12/2016 Overview (04/14/2016): 03/28/16 [facility]- unremarkable R/t to er 04/01/16- dx with uti and bv- tx rxed Closed left ankle fracture 06/25/2015 Overview (06/25/2015): 3 months ago. [facility] Pt had surgical repair done , d/joseph 06/14/15 from [facility] by Brody Potter MD Need for home health care 06/09/2015 Overview (06/09/2015): [facility] [phone] signed form 11/5/15 ( pt is having surgery, home care needed after surg Encounter for gynecological examination 06/01/20 15 Overview (06/22/2015): Pap done Normal exam Gc/ct negative Nil with ECC HPV negative; next pap due 06/01/2020 TON (generalized anxiety disorder) 03/03/2015 Overview (07/18/2022): 07/18/22: Mr aayush Martinez mercedes). [phone] sees pascual Raymond, joel with tramadol, [address] #[phone] Hepatitis B antibody positive 02/01/2015 Overview (02/01/2015): Rest of panel negative Mentally challenged Overview (01/17/2024): pt not able to drive secondary to diability Resolved Problems Problem Noted Date Diagnosed Date Resolved Date Scabies 06/25/2022 Overview (10/20/2015): [facility] 10/08/15 Immunizations Immunization Administration Dates Next Due Flu, Preservative Free 05/08/2023,07/18/2022, HPV 9 (Gardasil) 04/28/2024 Hep A, adult 08/22/2023 INFLUENZA, SEASONAL, INJECTABLE 08/31/2016,06/01 Influenza (FLUBLOK),recombinant,injectable,preservati ve Free 04/28/2024 PNEUMOCOCCAL CONJUGATE PCV 20 (Prevnar 20) 08/22 Pfizer COVID-19 (Comirnaty), Mrna, Lnp-s, Pf, Josh-sucrose, 30 Mcg/0.3 Ml, 12yr+ 04/28/2024,01/17/2024 TDAP 06/01/2015 Family History Medical History Relation Name Comments Mental illness Brother has#1bipolar Mental illness Mother bipolar Mental illness Sister has #3lupus/bipolar Relation Name Status Comments Brother has#1bipolar Alive Father unknown Other Mother bipolar Alive Sister has #3lupus/bipolar Alive Social History Tobacco Use Types Packs/Day Years Used Date Smoking Tobacco: Some Days Cigarettes Smokeless Tobacco: Never Comments:Pt smokes 1 cigaret te/day Alcohol Use Standard Drinks/Week Comments Not Currently 0 (1 standard drink = 0.6 oz pur e alcohol) has been > 1 year no smoking Social Connections Answer Date Recorded Connectedness 0 06/25/2022 Financial Resource Strain Answer Date R ecorded Financial Resource Strain 0 2021 Stress Answer Date Recorded Stress 0 06/25/2022 Physical Activity Answer Date Recorded Physical Activity 0 03/28/2019 Food Insecurity Answer Date Recorded Food 0 06/25/2022 Transportation Needs Answer Date Record ed Transportation 0 06/25/2022 Housing Stability Answer Date Recorded Housing 0 06/25/2022 Safety and Environment Answer Date Abhishek rded Safety 1 08/22/2023 Utilities Answer Date Recorded Utilities 0 06/25/2022 Employment Answer Date Recorded Stress 0 06/25/2022 Comments No Sex and Gender Information Value Date Recorded Sex Assigned at Female 09/26/2018 12:49 AM PST Legal Sex Female 11:36 AM PDT Gender Identity Female 09/26/2018 12:49 AM PST Sexual Orientation Straight 05/08/2023 11 :20 AM PDT Occupation Industry Job Start Date Job End Date unemployed Not on file Not on file Not on file Last Filed Vital Signs Vital Sign Reading Time Taken Comments Blood Pressure 100/62 04/28/2024 3:20 PM EDT Pulse 85 04/28/2024 3:20 PM EDT Temperature 36.8 C (98.2 F) 04/28/2024 3:20 PM EDT Respiratory Rate 16 04/28/2024 3:20 PM EDT Oxygen Saturation 95% 04/28/2024 3:20 PM EDT Inhaled Oxygen Concentration - - Weight 76.7 kg (169 lb) 04/28/2024 3:20 PM EDT Height 157.5 cm (5' 2 ) 04/28/2024 3:20 PM EDT Body Mass Index 30.91 04/28/2024 3:20 PM EDT Plan of Treatment Health Maintenance Due Date Last Done Comments HPV Screening 1985 Anxiety Screening 06/25/2023 06/25/2022 Tobacco Cessation Counseling (#1) 05/07/202407/18/ 022, 06/25/2022 Alcohol and Drug Screen 08/05/2024 08/22/19 24, 06/25/2022, 05/04/2019, Additional history exists Depression Annual Screen 08/05/2024 01/17/2024 Relationship Safety Screening/Counseling 08/22/2024 08/22/2023, 06/25/2022 Imm-Influenza (#1) 2025 04/28/2024, 1 , 07/18/2022, Additional history exists Annual Wellness (Adult): Indicated (All Coverage) 04/28/2025 04/28/2024, 08/22/2023, 07/18/2022, Additional history exists Hypertension Screening (#1) 04/28/2025 Imm-DTaP/Tdap/Td (2 - Td or Tdap) 06/01/2025 015, 06/01/2015 Lipid Screening 07/18/2025 07/18/2022, 09/06, 01/28/2015 Breast Cancer Screening (Mammogram) 02/16/2026 02/17/2024 Diabetes Screening 01/16/2027 01/17/2024, 0 10/17/2023, 07/18/2022, Additional history exists Pap Smear 04/28/2027 04/28/2024, 05/06, 06/01/2015, Additional history exists Cervical Cancer Screening 04/28/2029 Pap + HPV 04/28/2029 04/28/2024, 06/01/2015 Hepatitis C Screening Completed 01/28/2015 Imm-Pneumococcal Completed 08/22/2023 HIV Screening Completed 01/17/2024, 08/05, 07/18/2022, Additional history exists [id number] Completed 04/28/2024, 01/03, 10/06/2021 Cervical Ablation/Cold-Knife Conization Discontinued Cervical Cryotherapy Discontinued Colposcopy Discontinued Endometrial Biopsy Discontinued Excision/Leep Discontinued HPV Genotyping Discontinued Imm-Hepatitis B Discontinued Vaginal Pap Discontinued Vulvoscopy Discontinued Procedures Procedure Name Priority Date/Time Associated Diagnosis Comments THINPREP IMAGING PAP, HPV MRNA E6/E7 RFLEX HPV 16,18/45 CT/NG Routine 04/28/2024 4:54 PM EDT Encounter for Papanicolaou smear of vagina as part of routine gynecological examination Encounter for screening for human papillomavirus (HPV) REFERRAL FOR MAMMOGRAM Routine 02/17/2024 3:00 AM EDT Encounter for screening mammogram for breast cancer HIV 1/2 AG & AB W/RFLX (4TH GEN) Routine 01/17/2024 4:04 PM EDT Screening examination for venereal disease COMPREHENSIVE METABOLIC PANEL Routine 01/17/2024 4:04 PM EDT Preop examination LIPID PANEL Routine 07/18/2022 9:19 AM EST Routine general medical examination at a [facility] HEPATITIS A,B,C PANEL Routine 01/28/2015 4:17 PM EDT Routine health maintenance Screening examination for venereal disease from Last 3 Months or Most Recently Relevant to Health Maintenance Results * THINPREP IMAGING PAP, HPV MRNA E6/E7 RFLEX HPV 16,18/45 CT/NG (04/28/2024 4:54 PM EDT) CHLAMYDIA TRACHOMATIS RNA, TMA NOT DETECTED NOT DETECTED [facility] NEISSERIA GONORRHOEAE RNA, TMA NOT DETECTED NOT DETECTED [facility] COMMENT [facility] CLINICAL INFORMATION See Note [facility] Comment:None given LMP See Note [facility] Comment:UNK PREV. PAP See Note [facility] Comment:UNK PREV. BX See Note [facility] Comment:UNK SOURCE See Note [facility] Comment:Cervix, Endocervix STATEMENT OF ADEQUACY See Note [facility] Comment: Satisfactory for evaluation. Endocervical/transformation zone component present. Partially obscuring blood INTERPRETATION/RESU LT See Note [facility] Comment: Cytology Results: Negative for intraepithelial lesion or malignancy. COMMENT See Note [facility] Comment: This case could not be evaluated with computer assisted technology. The slide was manually screened according to routine procedures. SKATE MAKER See Note [facility] Comment: EXJ, CT(ASCP) CT Screening Location: [address] [address] REVIEW [employer]ATE [employer] See Note [facility] Comment: SL, CT(ASCP) CT screening location: [address] [address] COMMENT [facility] HPV MRNA E6/E7 Not Detected Not Detected [facility] Comment: Methodology: Learning And Development Officer-Mediated Amplification This assay detects E6/E7 viral messenger RNA (mRNA) from 14 high-risk HPV types (16,18,31,33,35,39,45,51,52,56,58,59,66,68). Cervical sources are required for HPV testing. If a vaginal source from a patient who has had a total hysterectomy with removal of cervix was submitted, please contact the testing laboratory for alternative testing options. For additional information, please refer to http://Bapul.[employer]/faq/WZG184m4 (This link if provided for information/ educational purposes only.) Swab Cervix uteri structure / Unknown 04/28/2024 4:54 PM EDT 04/29/2024 8:22 AM EDT Narrative [facility] - 05/03/2024 12:28 PM EDT SPECIMEN COLLECTED AT PROVIDER OFFICE. EXPLANATORY NOTE: The Pap is a screening test for cervical cancer. It is not a diagnostic test and is subject to false negative and false positive results. It is most reliable when a satisfactory sample, regularly obtained, is submitted with relevant clinical findings and history, and when the Pap result is evaluated along with historic and current clinical information. The analytical performance characteristics of this assay, when used to test SurePath(TM) specimens have been determined by [employer]. The modifications have not been cleared or approved by the FDA. This assay has been validated pursuant to the CLIA regulations and is used for clinical purposes. For additional information, please refer to https://education.[employer]/faq/RRR164 (This link is being provided for information/ educational purposes only.) us Juan Arita MD LAB - PATHOLOGY AND CYTOLOGY AMB ULATORY Final Result [facility] [address] [address], [facility] [address] [address] * REFERRAL FOR MAMMOGRAM SCREENING (02/17/2024 3:00 AM EDT) 02/17/2024 3:00 AM EDT us Alyse Gifford NP IMG RFL MAMMO Edited Resul t - Final * HIV 1/2 AG & AB W/RFLX (4TH GEN) (01/17/2024 4:04 PM EDT) Pathologist [facility] HIV AG/AB, 4TH GEN NON-REAC TIVE NON-REAC TIVE [facility] Comment: HIV-1 antigen and HIV-1/HIV-2 antibodies were not detected. There is no laboratory evidence of HIV infection. PLEASE NOTE: This information has been disclosed to you from records whose confidentiality may be protected by state law. If your state requires such protection, then the state law prohibits you from making any further disclosure of the information without the specific written consent of the person to whom it pertains, or as otherwise permitted by law. A general authorization for the release of medical or other information is NOT sufficient for this purpose. For additional information please refer to http://education.[employer]/faq/WBS424 (This link is being provided for informational/ educational purposes only.) The performance of this assay has not been clinically validated in patients less than 2 years old. Blood Blood / Unknown 01/17/2024 4 :04 PM EDT 01/17/2024 4:06 PM EDT us Alyse Gifford NP LAB - BLOOD DRAW Final Resul t [facility] [address] [address], [facility] [address] [address] * (ABNORMAL) COMPREHENSIVE METABOLIC PANEL (01/17/2024 4:04 PM EDT) Pathologist [facility] GLUCOSE 84 65 - 99 mg/dL [facility] Comment: Fasting reference interval UREA NITROGEN (BUN) 16 7 - 25 mg/dL [facility] CREATININE (blood) 1.24(H) 0.50 - 0.99 mg/dL [facility] EGFR 56(L) > OR = 60 mL/min/1. 73m2 [facility] BUN/CREATININE RATIO 13 6 - 22 (calc) [facility] SODIUM 140 135 - 146 mmol/L [facility] POTASSIUM 3.9 3.5 - 5.3 mmol/L [facility] CHLORIDE 106 98 - 110 mmol/L [facility] CARBON DIOXIDE 27 20 - 32 mmol/L [facility] CALCIUM 9.0 8.6 - 10.2 mg/dL [facility] PROTEIN, TOTAL 6.5 6.1 - 8.1 g/dL [facility] ALBUMIN 4.3 3.6 - 5.1 g/dL [facility] GLOBULIN 2.2 1.9 - 3.7 g/dL (calc) [facility] ALBUMIN/GLOBULI N RATIO 2.0 1.0 - 2.5 (calc) [facility] BILIRUBIN, TOTAL 0.9 0.2 - 1.2 mg/dL [facility] ALKALINE PHOSPHATASE 71 31 - 125 U/L [facility] AST 20 10 - 30 U/L [facility] ALT 29 6 - 29 U/L [facility] Blood Blood / Unknown 01/17/2024 4 :04 PM EDT 01/17/2024 4:06 PM EDT Alyse Gifford NP LAB - BLOOD DRAW Edited Resu lt - Final [facility] [address] [address], [facility] [address] [address] * (ABNORMAL) LIPID PANEL (07/18/2022 9:19 AM EST) CHOLESTEROL, TOTAL 173 <200 mg/dL [facility] HDL CHOLESTEROL 72 > OR = 50 mg/dL [facility] TRIGLYCERIDES 150(H) <150 mg/dL [facility] LDL-CHOLESTEROL 76 99 mg/dL (calc) [facility] Comment: Reference range: <100 Desirable range <100 mg/dL for primary prevention; <70 mg/dL for patients with CHD or diabetic patients with > or = 2 CHD risk factors. LDL-C is now calculated using the Johnny-Oakley calculation, which is a validated novel method providing better accuracy than the Friedewald equation in the estimation of LDL-C. Johnny SS et al. ISRRAEL. 2013;310(19): 5241-3009 (http://education.[employer]/faq/UEL469) CHOL/HDLC RATIO 2.4 <5.0 (calc) [facility] NON-HDL CHOLESTEROL 101 <130 mg/dL (calc) [facility] Comment: For patients with diabetes plus 1 major ASCVD risk factor, treating to a non-HDL-C goal of <100 mg/dL (LDL-C of <70 mg/dL) is considered a therapeutic option. Blood Blood / Unknown 07/18/2022 9 :19 AM EST 07/18/2022 9:20 AM EST Narrative [facility] - 07/19/2022 5:53 PM EST FASTING:YES Alyse Gifford MODEL [employer] D[employer] PERSON LAB - BLOOD DRAW Final Resul t [facility] [address] [address], [facility] [address] [address] * (ABNORMAL) HEPATITIS A,B,C PANEL (01/28/2015 4:17 PM EDT) HEPATITIS B SURFACE ANTIBODY POSITIVE(A) NEGATIVE [facility] SURFACE ANTIGEN NEGATIVE NEGATIVE [facility] C VIRUS DIAGNOSTIC NEGATIVE NEGATIVE [facility] A ANTIBODY TOTAL NEGATIVE NEGATIVE [facility] HEPATIT[facility] B CORE ANTIBODY NEGATIVE NEGATIVE [facility] Blood specimen (specimen) Blood / Unknown 01/28/2015 4:17 PM EDT 01/28/2015 4:18 PM EDT Narrative [facility] - 01/28/2015 8:07 PM EDT [facility] [address] [place] [address] [place] [id number] ORD# [id number] Natalia Martel ANP LAB - BLOOD DRAW Edited Resul t - Final [facility] [address] [place] [address], from Last 3 Months or Most Recently Relevant to Health Maintenance Insurance [place] DENT[place] HEALTH SAF[employer]Y [employer] [facility] Care Teams Field Specialist Relationship Specialty Start Date End Date Alyse Gifford NP [address] [place] [address] PCP - General Internal Medicine 04/23/22
== END 2025-02-21 11:37 | disposition home or self-care (01) ==
LOC: HO.ED 11:34
PROVIDERS: Emergency Provider Emergency Medicine
DX: K11.21 Acute sialoadenitis (principal); R22.1 Localized swelling, mass and lump, neck
CPT/HCPCS: 99281; 99283